=== PATIENT | female | born 1930 | race Asian ===

== ENCOUNTER 2019-06-23 16:26 | Inpatient (IN) | payer OTHER ==
[~2019-06-23] VITALS: Ht 170.2 cm; Wt 72.6 kg
[~2019-06-23 16:26] MED LIST: AMLO10TA PO; BENZ-196 PO; BISA10SU1 RC; CELE200C PO; CLOP75TA PO; DETLA4 PO; DOCU-2 PO; ESK300 PO; FAMO-90 PO; FENO145T PO; GABA300C PO; IBUP200C97 PO; MAGN400S60 PO; NITR0.4S14 SL; OLAN5TAB29 PO; OLOP2.5S OP
--- NOTE | 2019-06-23 16:26 | NUR ---
ANTHONY COATES ALS TO ER BED 03
[2019-06-23 16:41] VITALS: BP 138/61
--- NOTE | 2019-06-23 16:47 | NUR ---
BIBA FROM [facility] C/O ABDOMINAL PAIN& DISTENDED,N/V/D X 3 DAYS.PMH:GERD, OVER ACTIVE BLADDER,CAD,ARTHRITIS.PATIENT STATES PAIN OF 7/10 AT THIS TIME. PATIENT POSITIONED FOR COMFORT; HOB ELEVATED; BEDRAILS UP X2; BED DOWN. ER MD MADE AWARE OF PT STATUS.
[2019-06-23] MEDS ORDERED: LEVOFLOXACIN 500 MG/D5W PREMIX 100 ML IV ONE (17:15)
[2019-06-23] MEDS ORDERED: NACL 0.9% 1,000 ML IV ONE (17:15)
[2019-06-23 17:26] LABS: BASOPHILS % (AUTO) 0.4 % (0.0-2.0); EOSINOPHILS # (AUTO) 0.3 K/uL (0-0.4); EOSINOPHILS % (AUTO) 4.8 % (0.0-4.0); HEMATOCRIT 35.6 % (36-48); HEMOGLOBIN 11.3 g/dL (12.0-16.0); LYMPHOCYTES # (AUTO) 1.8 K/uL (2.5-16.5); LYMPHOCYTES % (AUTO) 25.2 % (20.5-51.1); MEAN CORPUSCULAR HEMOGLOBIN 28 pg (27-31); MEAN CORPUSCULAR HGB CONC 32 g/dL (33-37); MEAN CORPUSCULAR VOLUME 88.8 fL (80-94); MONOCYTES # (AUTO) 0.4 K/uL (0.8-1.0); MONOCYTES % (AUTO) 5.2 % (1.7-9.3); NEUTROPHILS # (AUTO) 4.6 K/uL (1.8-7.7); NEUTROPHILS % (AUTO) 64.4 % (42.2-75.2); PLATELET COUNT (AUTO) 310 K/uL (140-450); RED CELL DISTRIBUTION WIDTH 14.2 % (11.6-13.7); WHITE BLOOD COUNT (AUTO) 7.1 K/uL (4.8-10.8)
[2019-06-23 17:51] LABS: APPEARANCE,URINE SL CLOUDY (CLEAR); BILIRUBIN,URINE NEGATIVE (NEGATIVE); BLOOD, URINE 1+ (NEGATIVE); COLOR,URINE YELLOW (YELLOW); LEUKOCYTE ESTERASE ,URINE 2+ (NEGATIVE); NITRITE, URINE POSITIVE (NEGATIVE); UGLUCOSE NEGATIVE (NEGATIVE)
[2019-06-23 18:01] LABS: RBC,URINE 20-50 /HPF (0-5); WBC,URINE 80-100 /HPF (0-5)
--- NOTE | 2019-06-23 19:11 | NUR ---
SON :ERNA [facility] [phone] : ZAY [facility] [phone]
--- NOTE | 2019-06-23 19:13 | NUR ---
Pt report given to DANIELLE GU. Transfer of care at this time.
[2019-06-23 19:18] LABS: ALBUMIN 3.4 g/dL (3.4-5.0); AMYLASE 80 U/L (25-115); ANION GAP 13.6 (8-16); ASPARTATE AMINOTRANSFERASE 25 U/L (15-37); CARBON DIOXIDE 24.3 mmol/L (21-32); CHLORIDE 108 mmol/L (98-107); CREATININE 1.4 mg/dL (0.6-1.3); GLUCOSE 116 mg/dL (74-106); LIPASE 163 U/L (73-393); POTASSIUM 3.9 mmol/L (3.5-5.1); SODIUM SERUM 142 mmol/L (136-145); TOTAL BILIRUBIN 0.3 mg/dL (0.0-1.0); UREA NITROGEN, BLOOD 22 mg/dL (7-18)
[2019-06-23] MEDS ORDERED: FLUO10CA21 PO (20:54)
[2019-06-23] MEDS ORDERED: NACL 0.9% 1,000 ML IV SCH (21:17)
[2019-06-23] MEDS ORDERED: MORPHINE SULFATE 2 MG/ML SYR IVP PRN (21:20)
[2019-06-23] MEDS ORDERED: DOCUSATE SODIUM 100 MG GELCAP PO PRN (21:20)
[2019-06-23] MEDS ORDERED: HYDROcodone/APAP 5/325 MG 1 TAB TAB PO PRN (21:20)
[2019-06-23] MEDS ORDERED: ACETAMINOPHEN 325 MG TAB PO PRN (21:20)
[2019-06-23] MEDS ORDERED: ONDANSETRON 4 MG/2 ML VIAL IM/IVP PRN (21:20)
[2019-06-23] MEDS ORDERED: ZOLPIDEM 5 MG TAB PO PRN (21:20)
[2019-06-23] MEDS ORDERED: LORazepam 2 MG/ML VIAL IM/IVP PRN (21:20)
[2019-06-23 22:13] LABS: PROTHROMBIN TIME 10.5 secs (10.8-13.4)
[2019-06-23 22:15] VITALS: BP 105/54
--- NOTE | 2019-06-23 22:15 | NUR ---
RECEIVED PT FROM ER VIA [facility], PT IS AAOX2 SPEAKS TURKMEN AND PERSIAN HL ON RT AC GAUGE 20 SKIN IS INTACT, MRSA NARES SWAB PROTOCOL AND SENT TO LAB PT IS ORIENTED TOTHE FLOOR CALL LIGHT WITHIN REACH.
--- NOTE | 2019-06-23 22:15 | NUR ---
PT ADMITTED TO [facility] RM 123B. TRANSFERRED PT VIA [facility] WITH [facility]ER[place]NDO EMT. PT STABLE CONDITION. REPORT GIVEN TO STEVEN GU. TRANSFER OF CARE AT THIS TIME.
[2019-06-23 22:32] LABS: BARBITURATE, URINE NEG. ng/ml (NEG <=200); BENZODIAZEPINE, URINE NEG. ng/mL (NEG <=200); CANNABINOID, URINE NEG. ng/mL (NEG <=50); COCAINE, URINE NEG. ng/mL (NEG <=300); OPIATE, URINE NEG. ng/mL (NEG <=2000); PHENCYCLIDINE SCREEN,URINE NEG. ng/mL (NEG <=25)
[2019-06-23 22:40] LABS: CHOL/HDL RATIO 4.2 (1-4.5); PHOSPHORUS 2.1 mg/dL (2.5-4.9); THYROID STIMULATING HORMONE 1.24 uIU/mL (0.34-3.74)
--- NOTE | 2019-06-23 23:00 | NUR ---
PT IS TRANSFER TO ROOM 113 FOR HX OF DIARRHEA N/V , AND ABD PAIN
[2019-06-24] VITALS: BP 100/54
--- NOTE | 2019-06-24 02:47 | NUR ---
PT ON CLOSE MONITORING NOT VOMITING, NOT NAUSEAS NOT DIARRHEA AT THIS TIME SINCE ADMISSION, REPOSITIONED Q2H
[2019-06-24] MEDS ORDERED: MAGNESIUM HYDROXIDE 2400 MG/30 ML UDC PO PRN (03:15)
[2019-06-24] MEDS ORDERED: DEXTROSE 50% 50 ML SYR IVP PRN (03:15)
[2019-06-24] MEDS ORDERED: INSULIN LISPRO SLIDING SCALE 100 UNITS/ML VIAL SUBQ PRN (03:15)
[2019-06-24 04:00] VITALS: BP 152/72
[2019-06-24] MEDS ORDERED: SODIUM PHOS / POTASSIUM PHOS 1 PKT PDR PO SCH ×2 (04:00→12:00)
--- NOTE | 2019-06-24 05:00 | NUR ---
SPONGE BTH GIVEN LINEN CHANGED PT REMAIN STABLE NOT ABD PAIN NOT DIARRHEA PT REMAIN STABLE ATTHIS TIME ON TELEMTRY SB
[2019-06-24] MEDS: metroNIDAZOLE 500 MG/NS PREMIX 100 ML IV SCH ×3 (05:18→22:36)
[2019-06-24] MEDS: BLOOD GLUCOSE MONITORING 1 DEV DEV FS SCH ×4 (06:35→21:08)
--- NOTE | 2019-06-24 06:37 | NUR ---
BLOOD SUGAR TEST 103 PT DENIES ANY NAUSEAS O VOMITING, NOT BM NOTED
--- NOTE | 2019-06-24 06:38 | NUR ---
PT WILL BE ENDORSED [facility] FOR CONTINUE OF CARE
[2019-06-24] MEDS ORDERED: FAMOTIDINE 20 MG TAB PO SCH (07:30)
[2019-06-24] MEDS ORDERED: MEDICATION REC. PHARMACY CONS. 1 EA MISC MC PRN (07:40)
[2019-06-24 08:00] VITALS: BP 143/50
[2019-06-24] MEDS ORDERED: FERROUS SULFATE 325 MG TABEC PO SCH (08:00)
[2019-06-24] MEDS: LEVOFLOXACIN 250 MG/D5 PREMIX 50 ML IV SCH (08:56)
[2019-06-24] MEDS: amLODIPine 5 MG TAB PO SCH (09:00)
[2019-06-24] MEDS ORDERED: DOCUSATE SODIUM 100 MG GELCAP PO SCH (09:00)
[2019-06-24] MEDS: FLUoxetine 10 MG CAP PO SCH (09:00)
[2019-06-24] MEDS: LACTOBACILLUS RHAMNOSUS GG 1 EACH CAP PO SCH (09:00)
[2019-06-24] MEDS: CLOPIDOGREL 75 MG TAB PO SCH (09:01)
[2019-06-24] MEDS: FERROUS SULFATE 325 MG TABEC PO SCH (09:02)
[2019-06-24] MEDS: GABAPENTIN 100 MG CAP PO SCH (09:02)
[2019-06-24] MEDS: ASCORBIC ACID 500 MG TAB PO SCH (09:13)
--- NOTE | 2019-06-24 09:13 | NUR ---
ADMINISTERED MEDICATION PRESCRIBED PER MD ORDER. PT TOLERATED WELL. NO COMPLAINTS OR CONCERNS AT THIS TIME. MEDICATION EDUCATION PERFORMED. PT TOLERATED WELL. RESPIRATIONS EVEN AND UNLABORED. ABLE TO VERBALIZED UNDERSTANDING. SAFETY MEASURES IN PLACE. WILL CONTINUE TO MONITOR.
--- NOTE | 2019-06-24 09:16 | NUR ---
PATIENT HAS BEEN SCREENED AND CATEGORIZED HIGH NUTRITION RISK. PATIENT WILL BE SEEN WITHIN 1-2 DAYS OF ADMISSION. 06/23/19-06/25/[address]
[2019-06-24] MEDS ORDERED: FAMOTIDINE 20 MG TAB ONE (09:27)
[2019-06-24 09:32] LABS: BASOPHILS % (AUTO) 0.4 % (0.0-2.0); EOSINOPHILS # (AUTO) 0.3 K/uL (0-0.4); EOSINOPHILS % (AUTO) 4.3 % (0.0-4.0); HEMATOCRIT 39.1 % (36-48); HEMOGLOBIN 12.2 g/dL (12.0-16.0); LYMPHOCYTES # (AUTO) 1.1 K/uL (2.5-16.5); LYMPHOCYTES % (AUTO) 15.7 % (20.5-51.1); MEAN CORPUSCULAR HEMOGLOBIN 28 pg (27-31); MEAN CORPUSCULAR HGB CONC 31 g/dL (33-37); MEAN CORPUSCULAR VOLUME 89.1 fL (80-94); MONOCYTES # (AUTO) 0.3 K/uL (0.8-1.0); MONOCYTES % (AUTO) 4.3 % (1.7-9.3); NEUTROPHILS # (AUTO) 5.1 K/uL (1.8-7.7); NEUTROPHILS % (AUTO) 75.3 % (42.2-75.2); PLATELET COUNT (AUTO) 333 K/uL (140-450); RED BLOOD CELL COUNT(AUTO) 4.38 MIL/uL (4.20-5.40); RED CELL DISTRIBUTION WIDTH 14.6 % (11.6-13.7); WHITE BLOOD COUNT (AUTO) 6.7 K/uL (4.8-10.8)
[2019-06-24 09:41] LABS: CARBON DIOXIDE 24.6 mmol/L (21-32); CHLORIDE 112 mmol/L (98-107); GLUCOSE 109 mg/dL (74-106); POTASSIUM 4.6 mmol/L (3.5-5.1); SODIUM SERUM 147 mmol/L (136-145); UREA NITROGEN, BLOOD 15 mg/dL (7-18)
--- NOTE | 2019-06-24 10:22 | NUR ---
PT RESTING IN BED WITH FAMILY AT BEDSIDE. ABLE TO MAKE NEEDS KNOWN. NO COMPLAINTS OR CONCERNS AT THIS TIME. RESPIRATIONS EVEN AND UNLABORED WITH NO SOB OR RESPIRATORY DISTRESS. SKIN WARM AND DRY TO TOUCH. SAFETY MEASURES IN PLACE. WILL CONTINUE TO MONITOR.
--- NOTE | 2019-06-24 10:51 | NUR ---
Senior Reservoir Engineer Note: Basic Screen: Yes High Risk DC Screen Yes Name: LETA Watson Relationship: SON Pre-Admission Living Arrangements: SNF Healthcare Decision Maker: Next of Kin Advance Directive No Discipline: Case Mgt/Social Svcs Tentative Discharge Plan/Destination: SNF/ECF Will require assistance post discharge: No Referred to Overhead Cleaner: No Tentative Discharge Plan Summary: Patient is a 89-year-old female admitted for abdominal pain and diarrhea. Patient has PMHX of hypertension, diabetes mellitis, bipolar disorder, and CAD. Patient was admitted from [facility]. SW contacted Munir from admissions [phone]. Per Munir, patient is a long-term patient and is currently on a bed hold. Toney[place]toriya stated that patient has no advanced directive on file and patient's healthcare decision maker is Leta Robin [phone]. Patient's tentative discharge plan is to return to [facility]. No further needs identified. Signature: GRISEL El Date: Jun 24, 2019 Time: 10:49
--- NOTE | 2019-06-24 11:07 | NUR ---
DC PLANNING 89 YRS OLD FEMALE PT WAS ADMITTED FROM [facility] WITH A DX OF INFECTIOUS GASTROENTERITIS. PT HAS A HX OF HTN, DM, CAD, BIPOLAR . PT HAS DIAHRREA AND ABDOMINAL PAIN . CT ABD/PELVES SHOWS CHRONIC DIVERTICULOSIS , STOOL CULTURE AND C-DIFF SENT TO LAB ADMINISTERED IVF, LEVAQUIN AND FLAGYL AND PAIN CONTROL. DC PLAN TO GO BACK TO [facility] . CM TO FOLLOW Addendum: 06/25/19 at 1504 by Abby Santiago CM DC PLANNING NO REPORT OF DIARRHEA PER RN AND PATIENT CONTINUE IV ABX LEVAQUIN, FLAGYL AND CULTURELLE . DC PLAN TO GO BACK TO [facility] TOMORROW. CM TO FOLLOW Addendum: 06/26/19 at 1305 by Abby Santiago CM DC PLANNING FAXED THE DC ORDER AND ALL PAPER WORK TO [facility]. CALLED [facility] SPOKE WITH JOSEE , NOTIFIED PT NEEDS AUTH FOR TRANSPORT JOSEE PROVIDED AUTH # [id number] WAITING FOR BED NUMBER FROM [facility] CM TO FOLLOW Addendum: 06/26/19 at 1452 by Abby Santiago CM DC PLANNING PT HAS A DC ORDER TO GO BACK TO [facility] CAN GO TO ROOM 42 C # ACCEPTING DR CASEY . TO GIVE REPORT [phone] ARRANGED TRANSPORT WITH [facility] [phone] SENIOR CREDIT ANALYST TIME 17OO AUTH # FOR TRANSPORT FROM [facility] [id number] NOTIFIED GUS GU
--- NOTE | 2019-06-24 11:37 | NUR ---
PT RESTING ON THE SIDE OF THE BED WITH FAMILY AT BEDSIDE. ABLE TO MAKE NEEDS KNOWN. NO COMPLAINTS OR CONCERNS AT THIS TIME. RESPIRATIONS EVEN AND UNLABORED WITH NO SOB OR RESPIRATORY DISTRESS. SKIN WARM AND DRY TO TOUCH. SAFETY MEASURES IN PLACE. WILL CONTINUE TO MONITOR.
[2019-06-24 12:00] VITALS: BP 144/58
--- NOTE | 2019-06-24 12:28 | NUR ---
HOURLY ROUNDING. PT RESTING IN BED WITH FAMILY. ABLE TO MAKE NEEDS KNOWN. NO COMPLAINTS OR CONCERNS AT THIS TIME. RESPIRATIONS EVEN AND UNLABORED WITH NO SOB OR RESPIRATORY DISTRESS. SKIN WARM AND DRY TO TOUCH. SAFETY MEASURES IN PLACE. WILL CONTINUE TO MONITOR.
--- NOTE | 2019-06-24 13:17 | NUR ---
PT RESTING IN BED WITH FAMILY AT BEDSIDE. RESPIRATIONS EVEN AND UNLABORED WITH NO SOB OR RESPIRATORY DISTRESS. SKIN WARM AND DRY TO TOUCH. NO COMPLAINTS OR CONCERNS AT THIS TIME. SAFETY MEASURES IN PLACE. WILL CONTINUE TO MONITOR
--- NOTE | 2019-06-24 14:03 | NUR ---
PT RESTING ON THE CHAIR WITH FAMILY AT BEDSIDE.ABLE TO MAKE NEEDS KNOWN. NO COMPLAINTS OR CONCERNS AT THIS TIME. RESPIRATIONS EVEN AND UNLABORED WITH NO SOB OR RESPIRATORY DISTRESS. SKIN WARM AND DRY TO TOUCH. SAFETY MEASURES IN PLACE. WILL CONTINUE TO MONITOR.
[2019-06-24] MEDS: NACL 0.45% 1,000 ML IV SCH (14:14)
--- NOTE | 2019-06-24 14:40 | NUR ---
*S.T. BEDSIDE SWALLOW EVAL COMPLETED* See report for details. Pt presents w/ adequate oropharyngeal swallow function w/o overt s/s aspiration across all textures given. Pt able to self-feed w/o difficulty. Recommend: 1) Continue regular texture diet, thin liquids. 2) P.O. meds okay whole, one at a time. No further tx indicated at this time. DC to [facility] care. Endorsed to BRITTANIE Flores. Time [id number]
--- NOTE | 2019-06-24 14:42 | NUR ---
HOURLY ROUNDING. PT RESTING IN BED. RESPIRATIONS EVEN AND UNLABORED WITH NO SOB OR RESPIRATORY DISTRESS. SKIN WARM AND DRY TO TOUCH. NO COMPLAINTS OR CONCERNS AT THIS TIME. SAFETY MEASURES IN PLACE. WILL CONTINUE TO MONITOR
--- NOTE | 2019-06-24 15:47 | NUR ---
PT ASLEEP IN BED. RESPONSIVE TO VERBAL AND TACTILE STIMULI. RESPIRATIONS EVEN AND UNLABORED WITH NO SOB OR RESPIRATORY DISTRESS. SKIN WARM AND DRY TO TOUCH. NO COMPLAINTS OR CONCERNS AT THIS TIME. SAFETY MEASURES IN PLACE. WILL CONTINUE TO MONITOR
[2019-06-24 16:00] VITALS: BP 137/57
--- NOTE | 2019-06-24 16:06 | NUR ---
06/24/19 RD INITIAL ASSESSMENT COMPLETED PLEASE REFER TO NUTRITION ASSESSMENT UNDER CARE ACTIVITY FOR ESTIMATED NUTRITIONAL NEEDS. 1. CONTINUE CCHO 60 DIET TOLERATED 2. RECOMMEND GLUCERNA BID 3. RD TO FOLLOW-UP 2-3 DAYS, HIGH RISK NONA GARCIA, RD
--- NOTE | 2019-06-24 19:20 | NUR ---
ENDORSED TO NIGHTSHIFT NURSE. PT RESTING WITH FAMILY AT BEDSIDE. RESPIRATIONS EVEN AND UNLABORED WITH NO SOB OR RESPIRATORY DISTRESS. SKIN WARM AND DRY TO TOUCH. PATIENT IS STABLE.
--- NOTE | 2019-06-24 19:21 | NUR ---
RECD. RESTING IN BED, AWAKE, A/OX4, RESPIRATION EVEN AND UNLABORED. IV OF NS INFUSING AT 60 ML/HR. RIGHT FOREARM G20. F/C PATENT DRAINING CLEAR YELLOW URINE. DENIES DIARRHEA, STATED LAST BM IS YESTERDAY. SAFETY MEASURES ENFORCED. BED ON LOWEST POSITION, SIDE RAILS UP, BED ON ALARM. PATIENT GIVEN CALL LIGHT, INSTRUCTED TO CALL NURSE WHENEVER GETTING OUT OF BED, PLAN OF CARE FOR THE SHIFT DISCUSSED WITH PATIENT AND SON. VERBALIZED UNDERSTANDING. DENIES PAIN 0/10.
--- NOTE | 2019-06-24 19:30 | NUR ---
Patient's Plan of Care was discussed and reviewed with MEDICAL TRANSCRIPTION EDITOR: MARYELLEN
[2019-06-24 20:00] VITALS: BP 164/59
--- NOTE | 2019-06-24 20:00 | NUR ---
DR. RIVAS SPOKE WITH PATIENT AND FAMILY AND ANSWERS ALL QUESTIONS. STILL WAITING FOR RESULTS OF STOOL CULTURE AND OTHER TEST BEFORE PATIENT CAN BE DISCHARGE.
[2019-06-24] MEDS: OLANZapine 5 MG TAB PO SCH (20:51)
[2019-06-24] MEDS: LITHIUM CARBONATE 300 MG TAB PO SCH (20:52)
--- NOTE | 2019-06-24 21:10 | NUR ---
DUE PO MEDICATIONS GIVEN. SNACK GIVEN FOR THE NIGHT.
--- NOTE | 2019-06-24 21:30 | NUR ---
INSTRUCTED PATIENT TO CALL NURSE IF HAVING BM FOR COLLECTION OF STOOL FOR TEST TO BE SENT TO LAB. PLACED RECEPTACLE IN THE TOILET. VERBALIZED UNDERSTANDING.
[2019-06-25] VITALS: BP 117/55
--- NOTE | 2019-06-25 | NUR ---
SLEEPING COMFORTABLY IN BED.
[2019-06-25] MEDS: NACL 0.45% 1,000 ML IV SCH ×2 (03:50→18:11)
[2019-06-25 04:00] VITALS: BP 155/69
[2019-06-25 06:12] LABS: FOLIC ACID 8.5 ng/mL (>3.0)
[2019-06-25] MEDS: metroNIDAZOLE 500 MG/NS PREMIX 100 ML IV SCH ×3 (06:38→21:11)
--- NOTE | 2019-06-25 07:07 | NUR ---
AWAKE, IN BED. NO DIARRHEA NOTED DURING SHIFT. STILL WAITING TO HAVE BM FOR STOOL TEST. CONDITION REMAIN STABLE. ENDORSED TO AM NURSE FOR CONTINUITY OF CARE.
--- NOTE | 2019-06-25 07:07 | NUR ---
RECEIVED REPORT FROM WAREHOUSE OPERATOR NURSE, PATIENT IN STABLE CONDITION, WILL CONTINUE TO MONITOR.
[2019-06-25] MEDS: BLOOD GLUCOSE MONITORING 1 DEV DEV FS SCH ×4 (07:18→20:03)
[2019-06-25 08:00] VITALS: BP 161/74
[2019-06-25 08:16] LABS: BASOPHILS % (AUTO) 0.5 % (0.0-2.0); EOSINOPHILS # (AUTO) 0.2 K/uL (0-0.4); EOSINOPHILS % (AUTO) 3.4 % (0.0-4.0); HEMATOCRIT 38.7 % (36-48); HEMOGLOBIN 12.3 g/dL (12.0-16.0); LYMPHOCYTES # (AUTO) 1.4 K/uL (2.5-16.5); LYMPHOCYTES % (AUTO) 25.6 % (20.5-51.1); MEAN CORPUSCULAR HEMOGLOBIN 28 pg (27-31); MEAN CORPUSCULAR HGB CONC 32 g/dL (33-37); MEAN CORPUSCULAR VOLUME 88.3 fL (80-94); MONOCYTES # (AUTO) 0.2 K/uL (0.8-1.0); MONOCYTES % (AUTO) 4.4 % (1.7-9.3); NEUTROPHILS # (AUTO) 3.6 K/uL (1.8-7.7); NEUTROPHILS % (AUTO) 66.1 % (42.2-75.2); PLATELET COUNT (AUTO) 334 K/uL (140-450); RED BLOOD CELL COUNT(AUTO) 4.38 MIL/uL (4.20-5.40); RED CELL DISTRIBUTION WIDTH 14.6 % (11.6-13.7); WHITE BLOOD COUNT (AUTO) 5.5 K/uL (4.8-10.8)
--- NOTE | 2019-06-25 08:30 | NUR ---
RECEIVED REPORT FROM BRITTANIE EL. PATIENT IS LAYING IN BED, VISIBLE CHEST RISE AND FALL, Addendum: 06/25/19 at 1126 by Velia Cormier RN (CONTINUED NOTE): NO SIGNS OF RESPIRATORY DISTRESS NOTED. PATIENT IS CECILIO SPEAKING ONLY. CAME FROM [facility]. F/C PRESENT. PATIENT IS ON ROOM AIR. IV TO RIGHT AC 20G. WILL REVIEW AND CONTINUE WITH PLAN OF CARE.
[2019-06-25 09:09] LABS: MAGNESIUM 1.8 mg/dL (1.8-2.4)
[2019-06-25 09:10] LABS: ANION GAP 15.1 (8-16); CHLORIDE 113 mmol/L (98-107); GLUCOSE 115 mg/dL (74-106); PHOSPHORUS 2.1 mg/dL (2.5-4.9); POTASSIUM 4.1 mmol/L (3.5-5.1); SODIUM SERUM 146 mmol/L (136-145)
[2019-06-25 09:12] LABS: UREA NITROGEN, BLOOD 11 mg/dL (7-18)
--- NOTE | 2019-06-25 09:30 | NUR ---
ADMINISTERED MORNING MEDICATION. PATIENT TOLERATED PO WELL. NO COMPLAINTS
[2019-06-25] MEDS: FLUoxetine 10 MG CAP PO SCH (09:47)
[2019-06-25] MEDS: FERROUS SULFATE 325 MG TABEC PO SCH (09:49)
[2019-06-25] MEDS: PANTOPRAZOLE 40 MG TABEC PO SCH (09:49)
[2019-06-25] MEDS: TOLTERODINE LA 4 MG CAPER PO SCH (09:49)
[2019-06-25] MEDS: amLODIPine 5 MG TAB PO SCH (09:49)
[2019-06-25] MEDS: GABAPENTIN 100 MG CAP PO SCH (09:50)
[2019-06-25] MEDS: CLOPIDOGREL 75 MG TAB PO SCH (09:50)
[2019-06-25] MEDS: LACTOBACILLUS RHAMNOSUS GG 1 EACH CAP PO SCH (09:50)
[2019-06-25] MEDS: ASCORBIC ACID 500 MG TAB PO SCH (09:50)
[2019-06-25] MEDS: LEVOFLOXACIN 250 MG/D5 PREMIX 50 ML IV SCH (09:53)
[2019-06-25] MEDS ORDERED: hydrALAZINE 20 MG/ML VIAL IVP PRN (11:15)
[2019-06-25] MEDS ORDERED: MECLIZINE 25 MG TAB PO SCH (11:19)
[2019-06-25] MEDS ORDERED: MECLIZINE 25 MG TAB PO PRN (11:20)
--- NOTE | 2019-06-25 11:27 | NUR ---
PATIENT IS SLEEPING. VISIBLE CHEST RISE AND FALL. WILL CONTINUE TO MONITOR
[2019-06-25] MEDS ORDERED: POTASSIUM PHOSPHATE 15 MM in NACL 0.9% 250 ML IV SCH (12:00)
--- NOTE | 2019-06-25 12:00 | NUR ---
BLOOD SUGAR OF 89. NO ACTION NEEDED
--- NOTE | 2019-06-25 14:15 | NUR ---
PATIENT RESTING QUIETLY IN BED. AWAKE, ALERT. NO SIGNS OF DISTRESS. NO COMPLAINTS AT THIS TIME
[2019-06-25 16:00] VITALS: BP 155/70
--- NOTE | 2019-06-25 16:20 | NUR ---
BLOOD SUGAR OF 83, NO ACTION NEEDED.
--- NOTE | 2019-06-25 18:43 | NUR ---
FREQUENT ROUNDING DONE ON PATIENT. PATIENT IS IN STABLE CONDITION. NO COMPLAINTS, ALL NEEDS HAVE BEEN MET. WILL ENDORSE TO GAS AND OIL CHECKER FOR CONTINUITY OF CARE.
--- NOTE | 2019-06-25 19:30 | NUR ---
RECEIVED BEDSIDE REPORT FROM DAY RN. PT IS AWAKE AND ALERT SPEAKS VERY LITTLE TANZANIAN SPEAKS MAINLY CECILIO. SKIN IS INTACT. RAE CATH IN PLACE DRAINING CLEAR YELLOW URINE. IV ON RAC 20G IVF PER ORDERS. C/C DIARRHEA HAS NOT HAD BM SINCE ADMISSION. POC DISCUSSED WITH PT. FALL PRECAUTIONS ARE IN PLACE. CALL LIGHT IS WITHIN REACH. WILL CONTINUE TO MONITOR.
[2019-06-25] MEDS: LITHIUM CARBONATE 300 MG TAB PO SCH (20:45)
[2019-06-25] MEDS: OLANZapine 5 MG TAB PO SCH (20:45)
--- NOTE | 2019-06-25 20:47 | NUR ---
BLOOD SUGAR 125 NO COVERAGE NEEDED. ROXANNA MEDICATIONS GIVEN. PT TOLERATED WELL. POC DISCUSSED WITH PT AND SON AND FAMILY. ALL QUESTIONS AND CONCERNS ADDRESSED. CALL LIGHT IS WITHIN REACH. WILL CONTINUE TO MONITOR.
--- NOTE | 2019-06-25 23:15 | NUR ---
ADMINISTERED PRN AMBIEN FOR INSOMNIA. PT TOLERATED WELL. VITAL SIGNS ARE WITHIN NORMAL LIMITS. ALL NEEDS MET AT THIS TIME. CALL LIGHT IS WITHIN REACH.
[2019-06-25] MEDS ORDERED: ZOLPIDEM 5 MG TAB PO SCH (23:30)
[2019-06-26] VITALS: BP 149/60
--- NOTE | 2019-06-26 00:47 | NUR ---
PATIENT IS SLEEPING COMFORTABLY IN BED. CHEST RISE AND FALL. NO S/S OF DISTRESS. WILL CONTINUE TO MONITOR.
--- NOTE | 2019-06-26 03:01 | NUR ---
PATIENT IS SLEEPING COMFORTABLY IN BED. CHEST RISE AND FALL. ALL SAFETY MEASURES ARE IN PLACE. CALL LIGHT IS WITHIN REACH. CALL LIGHT IS WITHIN REACH.
[2019-06-26] MEDS: NACL 0.45% 1,000 ML IV SCH (03:29)
[2019-06-26] MEDS: metroNIDAZOLE 500 MG/NS PREMIX 100 ML IV SCH ×2 (04:14→13:32)
--- NOTE | 2019-06-26 04:14 | NUR ---
FLAGYL NOW INFUSING PER ORDERS. PT IS ASLEEP. CHEST RISE AND FALL. ALL SAFETY MEASURES ARE IN PLACE. CALL LIGHT IS WITHIN REACH. WILL CONTINUE TO MONITOR.
[2019-06-26] MEDS: BLOOD GLUCOSE MONITORING 1 DEV DEV FS SCH ×2 (05:58→11:50)
--- NOTE | 2019-06-26 06:03 | NUR ---
BLOOD SUGAR 91 NO COVERAGE NEEDED. PT IS SLEEPING COMFORTABLY IN BED. CHEST RISE AND FALL. SAFETY MEASURES ARE IN PLACE. CALL LIGHT IS WITHIN REACH.
--- NOTE | 2019-06-26 07:00 | NUR ---
RECEIVED REPORT FROM NIGHT NURSE. PATIENT IS SLEEPING, EASILY AROUSABLE, VISIBLE CHEST RISE AND FALL. PATIENT IS CECILIO SPEAKING ONLY. AAOX4. ON ROOM AIR. IV TO RIGHT AC 20G. PATIENT HAS A F/C IN PLACE. WILL REVIEW AND CONTINUE [facility] PLAN OF CARE FOR THE DAY.
--- NOTE | 2019-06-26 07:05 | NUR ---
GAVE BEDSIDE REPORT TO DAY RN. PT ENDORSED IN STABLE CONDITION.
[2019-06-26 07:06] LABS: BASOPHILS % (AUTO) 0.6 % (0.0-2.0); EOSINOPHILS # (AUTO) 0.3 K/uL (0-0.4); EOSINOPHILS % (AUTO) 4.9 % (0.0-4.0); HEMATOCRIT 38.5 % (36-48); HEMOGLOBIN 12.4 g/dL (12.0-16.0); LYMPHOCYTES # (AUTO) 1.8 K/uL (2.5-16.5); LYMPHOCYTES % (AUTO) 27.6 % (20.5-51.1); MEAN CORPUSCULAR HEMOGLOBIN 28 pg (27-31); MEAN CORPUSCULAR HGB CONC 32 g/dL (33-37); MEAN CORPUSCULAR VOLUME 88.2 fL (80-94); MONOCYTES # (AUTO) 0.5 K/uL (0.8-1.0); MONOCYTES % (AUTO) 7.4 % (1.7-9.3); NEUTROPHILS # (AUTO) 3.8 K/uL (1.8-7.7); NEUTROPHILS % (AUTO) 59.5 % (42.2-75.2); PLATELET COUNT (AUTO) 319 K/uL (140-450); RED BLOOD CELL COUNT(AUTO) 4.37 MIL/uL (4.20-5.40); RED CELL DISTRIBUTION WIDTH 14.7 % (11.6-13.7); WHITE BLOOD COUNT (AUTO) 6.4 K/uL (4.8-10.8)
[2019-06-26 07:09] LABS: ANION GAP 13.7 (8-16); CARBON DIOXIDE 23.7 mmol/L (21-32); CHLORIDE 112 mmol/L (98-107); GLUCOSE 108 mg/dL (74-106); POTASSIUM 4.4 mmol/L (3.5-5.1); SODIUM SERUM 145 mmol/L (136-145); UREA NITROGEN, BLOOD 12 mg/dL (7-18)
[2019-06-26 07:16] LABS: MAGNESIUM 1.8 mg/dL (1.8-2.4); PHOSPHORUS 2.8 mg/dL (2.5-4.9)
[2019-06-26 08:00] VITALS: BP 167/70
[2019-06-26] MEDS: LACTOBACILLUS RHAMNOSUS GG 1 EACH CAP PO SCH (08:53)
[2019-06-26] MEDS: GABAPENTIN 100 MG CAP PO SCH (08:54)
[2019-06-26] MEDS: PANTOPRAZOLE 40 MG TABEC PO SCH (08:54)
[2019-06-26] MEDS: ASCORBIC ACID 500 MG TAB PO SCH (08:55)
[2019-06-26] MEDS: TOLTERODINE LA 4 MG CAPER PO SCH (08:55)
[2019-06-26] MEDS: FLUoxetine 10 MG CAP PO SCH (08:55)
[2019-06-26] MEDS ORDERED: amLODIPine 5 MG TAB ONE (08:59)
[2019-06-26] MEDS: amLODIPine 5 MG TAB PO SCH (09:00)
[2019-06-26] MEDS: FERROUS SULFATE 325 MG TABEC PO SCH (09:00)
[2019-06-26] MEDS: CLOPIDOGREL 75 MG TAB PO SCH (09:00)
--- NOTE | 2019-06-26 09:00 | NUR ---
ADMINISTERED MORNING MEDICATION. PATIENT TOLERATED WELL. RESTING IN BED, NO COMPLAINTS AT THIS TIME.
[2019-06-26] MEDS: LEVOFLOXACIN 250 MG/D5 PREMIX 50 ML IV SCH (09:01)
[2019-06-26] MEDS ORDERED: DOCU-2 PO (11:39)
--- NOTE | 2019-06-26 11:49 | NUR ---
BLOOD SUGAR OF 83. NO ACTION NEEDED
--- NOTE | 2019-06-26 13:33 | NUR ---
BEGAN INFUSION OF FLAGYL IVPB. PATIENT IS SLEEPING BUT EASILY AROUSABLE
[2019-06-26] MEDS ORDERED: DEXT50SO52 IV (14:36)
--- NOTE | 2019-06-26 14:46 | NUR ---
06/26/19 RD FOLLOW UP COMPLETED PLEASE REFER TO NUTRITION ASSESSMENT UNDER CARE ACTIVITY FOR ESTIMATED NUTRITIONAL NEEDS. 1. CONTINUE CCHO 60 KOSHER DIET TOLERATED 2. RECOMMEND GLUCERNA BID 3. ENCOURAGED INCREASING PO INTAKE 4. FOLLOW DIETARY RESTRICTION OF NO PORK 5. RD TO FOLLOW-UP 3-5 DAYS, MODERATE RISK CHRISTOPHER HYDE, RD
--- NOTE | 2019-06-26 14:52 | NUR ---
WAS INFORMED OF PATIENTS PICKUP TIME OF 1700 FOR TRANSPORT[place] [facility] WILL CALL FOR REPORT AND FINISH PAPERWORK.
--- NOTE | 2019-06-26 16:09 | NUR ---
SPOKE TO [place] AT [facility] AND GAVE REPORT ON PATIENT. PATIENT WILL BE DISCHARGED WITH IV LINE FOR CONTINUED IV ABX
--- NOTE | 2019-06-26 16:19 | NUR ---
REMOVED PATIENTS F/C, LINE INTACT.
--- NOTE | 2019-06-26 17:05 | NUR ---
PATIENT HAS BEEN DISCHARGED BACK TO [facility]. ALL BELONGINGS SENT WITH PATIENT.
== END 2019-06-26 17:05 | DRG 391 ==
LOC: MED 16:26 → MTU 21:17
PROVIDERS: ADMIT General Practice; ATTEND General Practice
DX: A08.4 Viral intestinal infection, unspecified (principal); N17.0 Acute kidney failure with tubular necrosis; E87.0 Hyperosmolality and hypernatremia; N12 Tubulo-interstitial nephritis, not specified as acute or chronic; K21.9 Gastro-esophageal reflux disease without esophagitis; N32.81 Overactive bladder; I25.10 Atherosclerotic heart disease of native coronary artery without angina pectoris; E11.9 Type 2 diabetes mellitus without complications; I10 Essential (primary) hypertension; E86.0 Dehydration; F31.9 Bipolar disorder, unspecified; D64.9 Anemia, unspecified; E83.39 Other disorders of phosphorus metabolism; B96.1 Klebsiella pneumoniae [K. pneumoniae] as the cause of diseases classified elsewhere; Z90.49 Acquired absence of other specified parts of digestive tract
CPT/HCPCS: 36415; 80048; 80053; 80178; 80305; 81001; 82150; 82607; 82728; 82746; 82948; 83036; 83540; 83605; 83690; 83735; 84100; 84134; 84443; 85025; 85045; 85610; 85730; 87040; 87081; 87086; 87186; 92610; 93925; 93970; 96365; 97110; 97116; 97161-GP; 97530; 99285; J1956; J3490; J7030; J8597; Q0092

== ENCOUNTER 2019-09-04 10:37 | Inpatient (IN) | payer OTHER ==
[~2019-09-04] VITALS: Ht 162.6 cm; Wt 68.9 kg
[~2019-09-04 10:37] MED LIST changes: -CELE200C PO; +DEXT50SO52 IV; -FENO145T PO; +FLUO10CA21 PO
[2019-09-04 10:41] VITALS: BP 124/67
--- NOTE | 2019-09-04 10:43 | NUR ---
PT. BIBA TAKEN TO BED 10
[2019-09-04] MEDS ORDERED: ASPIRIN 81 MG TAB.CHEW PO ONE (11:00)
[2019-09-04] MEDS ORDERED: NACL 0.9% 1,000 ML IV ONE (11:00)
[2019-09-04] MEDS ORDERED: FAMOTIDINE 20 MG/2 ML VIAL IVP ONE (11:00)
--- NOTE | 2019-09-04 11:03 | NUR ---
89YO F BIBA FROM [facility] C/O CHEST PAIN STARTING YESTERDAY, WHICH INCREASED TODAY. STATES PAIN 8/10 WHICH RADIATES TO LEFT ABDOMEN. NITROGLYCERIN GIVEN 3X WITHOUT RELIEF. IN ER, VSS. PT NOT IN DISTRESS. NRRR. ON O2 VIA NC AT 2LPM, 02 SAT 99%. POSITIONED COMFORTABLY, SIDERAILS UP. ERMD MADE AWARE. MEDHX: HTN, BIPOLAR, DEPRESSION, ANEMIA, GERD NKA
[2019-09-04] MEDS ORDERED: NITROGLYCERIN 2% 1 GM PKT TP ONE (11:05)
[2019-09-04 11:21] LABS: BASOPHILS % (AUTO) 0.4 % (0.0-2.0); EOSINOPHILS # (AUTO) 0.4 K/uL (0-0.4); HEMATOCRIT 35.3 % (36-48); HEMOGLOBIN 11.6 g/dL (12.0-16.0); LYMPHOCYTES # (AUTO) 1.5 K/uL (2.5-16.5); LYMPHOCYTES % (AUTO) 19.2 % (20.5-51.1); MEAN CORPUSCULAR HEMOGLOBIN 29 pg (27-31); MEAN CORPUSCULAR HGB CONC 33 g/dL (33-37); MEAN CORPUSCULAR VOLUME 87.1 fL (80-94); MONOCYTES # (AUTO) 0.4 K/uL (0.8-1.0); MONOCYTES % (AUTO) 5.3 % (1.7-9.3); NEUTROPHILS # (AUTO) 5.3 K/uL (1.8-7.7); NEUTROPHILS % (AUTO) 70.1 % (42.2-75.2); PLATELET COUNT (AUTO) 303 K/uL (140-450); RED BLOOD CELL COUNT(AUTO) 4.06 MIL/uL (4.20-5.40); RED CELL DISTRIBUTION WIDTH 15.9 % (11.6-13.7); WHITE BLOOD COUNT (AUTO) 7.6 K/uL (4.8-10.8)
[2019-09-04 11:51] LABS: ALBUMIN 3.6 g/dL (3.4-5.0); ANION GAP 10.9 (8-16); ASPARTATE AMINOTRANSFERASE 17 U/L (15-37); CARBON DIOXIDE 27.5 mmol/L (21-32); CHLORIDE 108 mmol/L (98-107); CREATININE 1.1 mg/dL (0.6-1.3); GLUCOSE 101 mg/dL (74-106); POTASSIUM 4.4 mmol/L (3.5-5.1); SODIUM SERUM 142 mmol/L (136-145); TOTAL BILIRUBIN 0.3 mg/dL (0.0-1.0); UREA NITROGEN, BLOOD 26 mg/dL (7-18)
--- NOTE | 2019-09-04 11:54 | NUR ---
PT SON AT BEDSIDE; UPDATED ON PLAN OF CARE.
[2019-09-04 12:03] LABS: APPEARANCE,URINE SL CLOUDY (CLEAR); BILIRUBIN,URINE NEGATIVE (NEGATIVE); BLOOD, URINE NEGATIVE (NEGATIVE); COLOR,URINE YELLOW (YELLOW); LEUKOCYTE ESTERASE ,URINE 3+ (NEGATIVE); NITRITE, URINE POSITIVE (NEGATIVE); UGLUCOSE NEGATIVE (NEGATIVE)
[2019-09-04 12:17] LABS: RBC,URINE 0-5 /HPF (0-5)
[2019-09-04] MEDS ORDERED: MORPHINE SULFATE 2 MG/ML SYR IVP PRN (14:00)
[2019-09-04] MEDS ORDERED: ACETAMINOPHEN 325 MG TAB PO PRN (14:00)
[2019-09-04] MEDS ORDERED: DOCUSATE SODIUM 100 MG GELCAP PO PRN (14:00)
[2019-09-04] MEDS ORDERED: HYDROcodone/APAP 5/325 MG 1 TAB TAB PO PRN (14:00)
[2019-09-04] MEDS ORDERED: ONDANSETRON 4 MG/2 ML VIAL IM/IVP PRN (14:00)
[2019-09-04] MEDS ORDERED: cefTRIAXone 1,000 MG VIAL ONE (14:10)
[2019-09-04 14:29] LABS: MAGNESIUM 2.1 mg/dL (1.8-2.4); PHOSPHORUS 2.8 mg/dL (2.5-4.9)
[2019-09-04 14:44] LABS: PROTHROMBIN TIME 9.9 secs (10.8-13.4)
[2019-09-04 14:45] VITALS: BP 105/53
--- NOTE | 2019-09-04 14:45 | NUR ---
RECEIVED BEDSIDE REPORT FROM ED NURSE FELIBERTO. PT RESTING IN BED UPON ARRIVAL. ABLE TO MAKE NEEDS KNOWN.RESPIRATIONS EVEN AND UNLABORED WITH NO SOB OR RESPIRATORY DISTRESS. SKIN WARM AND DRY TO TOUCH. IV SITE IN RAC 22G IS CLEAN, DRY, AND INTACT. MRSA SWAB COLLECTED. SAFETY MEASURES IN PLACE. WILL CONTINUE TO MONITOR
--- NOTE | 2019-09-04 14:59 | NUR ---
Patient will be admitted to care of DR SHEPHERD. Admited to TELEMETRY. Will go to room 119A. Belongings list completed. Report to BRITTANIE ESTRADA.
[2019-09-04] MEDS ORDERED: NITROGLYCERIN 0.4 MG TAB SL PRN (15:00)
[2019-09-04] MEDS ORDERED: LACTOBACILLUS RHAMNOSUS GG 1 EACH CAP PO SCH (15:30)
[2019-09-04] MEDS: NACL 0.9% 1,000 ML IV SCH (15:43)
--- NOTE | 2019-09-04 15:43 | NUR ---
ADMINISTERED SCHED MED PRESCRIBED PER MD ORDER. PT TOLERATED WELL. MEDICATION EDUCATION PERFORMED. PT VERBALIZED UNDERSTANDING. SAFETY MEASURES IN PLACE. WILL CONTINUE TO MONITOR.
[2019-09-04 16:00] VITALS: BP 121/58
[2019-09-04] MEDS ORDERED: FAMOTIDINE 20 MG TAB PO SCH (16:30)
--- NOTE | 2019-09-04 17:22 | NUR ---
HOURLY ROUNDING. ADMINISTERED SCHED MED PRESCRIBED PER MD ORDER. PT TOLERATED WELL. MEDICATION EDUCATION PERFORMED. PT VERBALIZED UNDERSTANDING. SAFETY MEASURES IN PLACE. WILL CONTINUE TO MONITOR.
--- NOTE | 2019-09-04 18:19 | NUR ---
FAMILY AT BEDSIDE. PT RESTING IN BED UPON ARRIVAL. ABLE TO MAKE NEEDS KNOWN.RESPIRATIONS EVEN AND UNLABORED WITH NO SOB OR RESPIRATORY DISTRESS. SKIN WARM AND DRY TO TOUCH. SAFETY MEASURES IN PLACE. WILL CONTINUE TO MONITOR
--- NOTE | 2019-09-04 19:29 | NUR ---
ENDORSED AT BEDSIDE TO NIGHTSHIFT NURSE. PT RESTING IN BED UPON ARRIVAL. ABLE TO MAKE NEEDS KNOWN.RESPIRATIONS EVEN AND UNLABORED WITH NO SOB OR RESPIRATORY DISTRESS. SKIN WARM AND DRY TO TOUCH. SAFETY MEASURES IN PLACE. PT IS STABLE
--- NOTE | 2019-09-04 19:30 | NUR ---
RECEIVED REPORT FROM DAYSHIFT NURSE AT PATIENTS BEDSIDE. AWAKE AND ALERT, SPEAKS (PAKISTAN ONLY-URI?) ABLE TO MAKE NEEDS KNOWN, FOLLOWS SOME SIMPLE COMMANDS. SON AT BEDSIDE, ABLE TO TRANSLATE. NASAL CANNULA IN PLACE WITH HUMIDIFIER AT 2LPM. LUNG SOUNDS CLEAR, NO SHORTNESS OF BREATH, NO COUGH OR CONGESTION NOTED, SATURATIONS 97%. CONNECTED TO HIGHWAY MAINTENANCE CREW WORKER, HR- 80 BPM, S1S2 HEARD. RIGHT AC PERIPHERAL IV, 22G, FLUSHED AND PATENT WITHOUT SYMPTOMS, INFUSING NS @ 60ML/HR. SKIN IS WARM AND DRY, INTACT. ABDOMEN LARGE, SOFT AND NONTENDER, ACTIVE BOWEL SOUNDS. PATIENT IS INCONTINENT, ROXANE PADS IN PLACE. GENERALIZED WEAKNESS NOTED, BEDBOUND/BED REST. CALL LIGHT WITHIN REACH, PATIENT AND SON UPDATED ON CARE PLAN. SAFETY ALARMS IN PLACE, BED LOCKED AND IN LOWEST POSITION, VALUABLES WITHIN REACH. WILL CONTINUE TO MONITOR.
--- NOTE | 2019-09-04 19:45 | NUR ---
ASSISTING TEST CENTER ADMINISTRATOR WITH LAB DRAW-TROPONIN. UNSUCCESSFUL AFTER 2 ATTEMPTS. ATTEMPTED LAB DRAW AT RIGHT AC, PERIPHERAL IV BUT NO GOOD BLOOD RETURN. TEST CENTER ADMINISTRATOR ABLE TO DRAW LAB AT LEFT LOWER ARM, PT TOLERATED FAIRLY, SON AT BEDSIDE.
[2019-09-04 20:00] VITALS: BP 118/50
[2019-09-04] MEDS: GABAPENTIN 300 MG CAP PO SCH (20:26)
[2019-09-04] MEDS: OXYBUTYNIN 5 MG TAB PO SCH (20:26)
[2019-09-04] MEDS: OLANZapine 5 MG TAB PO SCH (20:27)
[2019-09-04] MEDS: LITHIUM CARBONATE 300 MG TAB PO SCH (20:27)
--- NOTE | 2019-09-04 22:25 | NUR ---
PATIENT RESTING WELL IN BED, EYES CLOSED, SNORING LOUDLY, SAFETY PRECAUTIONS IN PLACE, SIDERAILS UPx3, BED LOCKED AND IN LOWEST POSITION, CALL LIGHT WITHIN REACH. FLACC 0.
[2019-09-05] VITALS: BP 116/58
--- NOTE | 2019-09-05 00:30 | NUR ---
IV PUMP KEEPS ALARMING, PATIENT HAS ARM BENT FOR COMFORT, READJUSTED ARM AND FIXED LINE, ORIENTED PATIENT TO TRY TO KEEP ARM STRAIGHT. ALL NEEDS MET AT THIS TIME, IV FLUIDS INFUSING AT 60ML/HR.
--- NOTE | 2019-09-05 02:15 | NUR ---
TURNED AND REPOSITIONED PATIENT, TOLERATED FAIRLY, PATIENT NOT TURKMEN SPEAKING BUT ABLE TO NOD HEAD YES AND NO. DENIES PAIN, SKIN INTACT, OFFLOADED PRESSURE AREAS.
[2019-09-05 04:00] VITALS: BP 123/66
--- NOTE | 2019-09-05 04:10 | NUR ---
RESTING WELL IN BED, EYES CLOSED, ON NASAL CANNULA 2LPM, TURNED AND REPOSITIONED, DENIES PAIN-SHAKES HEAD NO. ALL VITALS WNL. SAFETY ALARMS IN PLACE. WILL CONTINUE TO MONITOR.
--- NOTE | 2019-09-05 06:04 | NUR ---
PATIENT TAKEN TO CT VIA WHEELCHAIR FOR CT OF ABDOMEN.
[2019-09-05 06:25] LABS: BASOPHILS # (AUTO) 0.1 K/uL (0.00-0.22); BASOPHILS % (AUTO) 0.7 % (0.0-2.0); EOSINOPHILS # (AUTO) 0.6 K/uL (0-0.4); EOSINOPHILS % (AUTO) 7.7 % (0.0-4.0); HEMATOCRIT 31.2 % (36-48); HEMOGLOBIN 10.6 g/dL (12.0-16.0); LYMPHOCYTES % (AUTO) 25.5 % (20.5-51.1); MEAN CORPUSCULAR HEMOGLOBIN 30 pg (27-31); MEAN CORPUSCULAR HGB CONC 34 g/dL (33-37); MEAN CORPUSCULAR VOLUME 87.4 fL (80-94); MONOCYTES # (AUTO) 0.4 K/uL (0.8-1.0); MONOCYTES % (AUTO) 4.7 % (1.7-9.3); NEUTROPHILS # (AUTO) 4.8 K/uL (1.8-7.7); NEUTROPHILS % (AUTO) 61.4 % (42.2-75.2); PLATELET COUNT (AUTO) 278 K/uL (140-450); RED BLOOD CELL COUNT(AUTO) 3.56 MIL/uL (4.20-5.40); RED CELL DISTRIBUTION WIDTH 15.9 % (11.6-13.7); WHITE BLOOD COUNT (AUTO) 7.7 K/uL (4.8-10.8)
[2019-09-05] MEDS: GABAPENTIN 300 MG CAP PO SCH ×3 (06:30→20:16)
[2019-09-05 06:54] LABS: CHLORIDE 111 mmol/L (98-107); CREATININE 0.9 mg/dL (0.6-1.3); GLUCOSE 100 mg/dL (74-106); POTASSIUM 4.3 mmol/L (3.5-5.1); SODIUM SERUM 142 mmol/L (136-145); UREA NITROGEN, BLOOD 19 mg/dL (7-18)
[2019-09-05] MEDS: NACL 0.9% 1,000 ML IV SCH ×2 (07:10→23:50)
[2019-09-05 07:24] LABS: ANION GAP 8.9 (8-16); CARBON DIOXIDE 26.4 mmol/L (21-32)
--- NOTE | 2019-09-05 07:32 | NUR ---
RECEIVED BEDSIDE REPORT FROM EXTRACORPOREAL TECHNICIAN RN FOR CONTINUITY OF CARE. PT IS AAOX2 PER HER SON, ABLE TO MAKE NEEDS KNOWN. PT RESTING IN BED UPON ARRIVAL. RESPIRATIONS EVEN AND UNLABORED WITH NO SOB OR RESPIRATORY DISTRESS. SKIN WARM AND DRY TO TOUCH. IV SITE IN RAC 22G IS CLEAN, DRY, AND INTACT. SAFETY MEASURES IN PLACE. BOARD UPDATED. DISCUSSED POC WITH PT BUT PT UNABLE TO COMPREHEND FULLY DUE TO LANGUAGE BARRIER. WILL MONITOR PT CLOSELY.
[2019-09-05 08:00] VITALS: BP 113/62
--- NOTE | 2019-09-05 08:27 | NUR ---
PATIENT HAS BEEN SCREENED AND CATEGORIZED HIGH NUTRITION RISK. PATIENT WILL BE SEEN WITHIN 1-2 DAYS OF ADMISSION. 09/05/19-09/06/[address]
[2019-09-05] MEDS ORDERED: FAMOTIDINE 20 MG TAB PO SCH (09:00)
[2019-09-05] MEDS: CLOPIDOGREL 75 MG TAB PO SCH (09:48)
--- NOTE | 2019-09-05 09:48 | NUR ---
ADMIN MORNING MEDS. PT TOLERATED WELL. ALL NEEDS MET.
[2019-09-05] MEDS: ASPIRIN 81 MG TAB.CHEW PO SCH (09:49)
[2019-09-05] MEDS: OXYBUTYNIN 5 MG TAB PO SCH ×2 (09:49→20:14)
[2019-09-05] MEDS: amLODIPine 5 MG TAB PO SCH (09:49)
[2019-09-05] MEDS: LACTOBACILLUS RHAMNOSUS GG 1 EACH CAP PO SCH (09:50)
[2019-09-05] MEDS: FLUoxetine 10 MG CAP PO SCH (09:50)
[2019-09-05] MEDS: LISINOPRIL 5 MG TAB PO SCH (09:50)
[2019-09-05] MEDS: ATORVASTATIN 20 MG TAB PO SCH (09:51)
--- NOTE | 2019-09-05 10:47 | NUR ---
Customer Solutions Architect Note: Basic Screen: Yes High Risk DC Screen [place]: LETA SALGADO Home Relationship: CHILD Pre-Admission Living Arrangements: SNF Prior ADL Needs Assistance Current Home Health Name/Tel: N/A Current DME/02 Name/Tel: N/A Current Hospice Name/Tel: N/A Current Dialysis Name/Tel: N/A Healthcare Decision Maker: Next of Kin Other: LETA SALGADO Advance Directive No Physician Orders for Life Sustaining Treatment Form No Patient/Family Have Educational Needs No Discipline: Case Mgt/Social Svcs Tentative Discharge Plan/Destination: SNF/ECF Will require assistance post discharge: No Referred to [facility]: No Tentative Discharge Plan Summary: Patient is an 89-year-old female admitted for chest pain. Patient has PMHX of HTN, GERD, bipolar disorder, and degenerative joint disease. Patient was admitted from [facility]. SW contacted [facility] and spoke to Munir from admissions [phone]. Per Munir, patient is half-way and on a bed hold. Patient has no advanced directive on file. Patient's healthcare decision maker is patient's childd Leta Salgado [phone]. Munir reported that patient is wheelchair bound and is alert/oriented @ baseline but there is a language barrier. Patient needs assistance with ADLs. Patient's tentative discharge plan is for patient to return to [facility]. No further needs identified. Signature: GRISEL El Date: Sep 05, 2019 Time: 10:46
--- NOTE | 2019-09-05 11:16 | NUR ---
PT SLEEPING. ALL NEEDS MET.
[2019-09-05 12:00] VITALS: BP 131/54
--- NOTE | 2019-09-05 13:27 | NUR ---
09/05/19 RD INITIAL ASSESSMENT COMPLETED PLEASE REFER TO NUTRITION ASSESSMENT UNDER CARE ACTIVITY FOR ESTIMATED NUTRITIONAL NEEDS. 1. CONTINUE NPO MEDICALLY APPROPRIATE 2. IF/WHEN PATIENT IS MEDICALLY STABLE TO ADVANCE TO PO DIET CONSIDER A SOFT 2GM NA DIET 3. RD TO FOLLOW-UP 2-3 DAYS, HIGH RISK CHRISTOPHER HYDE RD
--- NOTE | 2019-09-05 13:41 | NUR ---
PT RESTING IN BED WITH FAMILY AT BEDSIDE. ALL NEEDS MET.
--- NOTE | 2019-09-05 15:29 | NUR ---
PT RESTING IN BED. ALL NEEDS MET. WILL CONTINUE TO ROUND ON PT.
[2019-09-05 16:00] VITALS: BP 125/53
--- NOTE | 2019-09-05 17:41 | NUR ---
PT RESTING IN BED. ALL NEEDS MET.
--- NOTE | 2019-09-05 19:56 | NUR ---
ENDORSED PT TO SENIOR TECHNICAL WRITER FOR CONTINUITY OF CARE. PT IN STABLE CONDITION AT THIS TIME.
--- NOTE | 2019-09-05 19:57 | NUR ---
ENDORSEMENT RECEIVED AT BEDSIDE FROM AM SHIFT RN. PATIENT IS AWAKE, ALERT ORIENTED X 2. ON O2 AT 2LPM VIA NC. RESPIRATION EVEN AND UNLABORED. SKIN IS INTACT. IV SITE AT RIGHT AC 22G, INTACT AND PATENT. NPO EXCEPT MEDS. LOW BED AND BED ALARM ACTIVATED, SAFETY MEASURES IN PLACE. CALL LIGHT WITHIN REACH.
[2019-09-05 20:00] VITALS: BP 99/51
[2019-09-05] MEDS: LITHIUM CARBONATE 300 MG TAB PO SCH (20:15)
[2019-09-05] MEDS: OLANZapine 5 MG TAB PO SCH (20:16)
--- NOTE | 2019-09-05 20:29 | NUR ---
ADMINISTERED DUE MEDS PER MD ORDER. TOLERATED WELL. MED ED PROVIDED. NO SOB NOTED. WILL CONTINUE TO MONITOR.
--- NOTE | 2019-09-05 22:00 | NUR ---
MADE ROUNDS. QUALITY ASSURANCE SUPERVISOR DOING TURNING AND REPOSITIONING., NO DISCOMFORT NOTED.
[2019-09-06] VITALS: BP 111/53
--- NOTE | 2019-09-06 01:30 | NUR ---
IV ACCESS INFILTRATED. DC'D AND STARTED A NEW IV LINE ON RT HAND G22. CLEAR AND PATENT.
--- NOTE | 2019-09-06 02:00 | NUR ---
MADE ROUNDS. PT ASLEEP. NO S/S OF ANY DISCOMFORT NOTED.
[2019-09-06 04:00] VITALS: BP 156/64
--- NOTE | 2019-09-06 04:00 | NUR ---
PT HAS BEEN REPOSITIONED FOR COMFORT.
[2019-09-06] MEDS ORDERED: LIDOCAINE VISCOUS 2% 20 ML UDC PO ONE (06:40)
[2019-09-06] MEDS ORDERED: DICYCLOMINE HCL LIQUID 10 MG/5 ML UDC PO ONE (06:40)
[2019-09-06] MEDS ORDERED: ALUMINUM HYD/MAG/SIMETHICONE 30 ML UDC PO ONE (06:40)
[2019-09-06 07:09] LABS: BASOPHILS % (AUTO) 0.7 % (0.0-2.0); EOSINOPHILS # (AUTO) 0.4 K/uL (0-0.4); EOSINOPHILS % (AUTO) 7.3 % (0.0-4.0); HEMATOCRIT 36.3 % (36-48); HEMOGLOBIN 12.2 g/dL (12.0-16.0); LYMPHOCYTES # (AUTO) 1.2 K/uL (2.5-16.5); LYMPHOCYTES % (AUTO) 20.7 % (20.5-51.1); MEAN CORPUSCULAR HEMOGLOBIN 29 pg (27-31); MEAN CORPUSCULAR HGB CONC 34 g/dL (33-37); MEAN CORPUSCULAR VOLUME 87.1 fL (80-94); MONOCYTES # (AUTO) 0.3 K/uL (0.8-1.0); MONOCYTES % (AUTO) 4.6 % (1.7-9.3); NEUTROPHILS # (AUTO) 3.9 K/uL (1.8-7.7); NEUTROPHILS % (AUTO) 66.7 % (42.2-75.2); PLATELET COUNT (AUTO) 288 K/uL (140-450); RED BLOOD CELL COUNT(AUTO) 4.17 MIL/uL (4.20-5.40); RED CELL DISTRIBUTION WIDTH 15.7 % (11.6-13.7); WHITE BLOOD COUNT (AUTO) 5.9 K/uL (4.8-10.8)
[2019-09-06] MEDS: GABAPENTIN 300 MG CAP PO SCH ×2 (07:20→13:28)
--- NOTE | 2019-09-06 07:20 | NUR ---
RECEIVED BEDSIDE REPORT FROM PARTS CLEANER NURSE. PT IS AWAKE IN BED, NO S/S OF DISTRESS NOTED. PT IS ON ROOM AIR, SKIN IS INTACT. IV SITE ON THE R HAND 22 G INFUSING NS 60 ML/HR. FALL PRECAUTIONS IN PLACE. CALL LIGHT IS WITHIN REACH. WILL CONTINUE TO MONITOR.
--- NOTE | 2019-09-06 07:20 | NUR ---
ENDORSED PT IN STABLE CONDITION TO AM NURSE. AWAKE, ALERT AND ORIENTED X2. BEDREST. ON TELE MONITOR. WITH IV FLUIDS INFUSING WELL ON THE RT AC G#20. NO S/S OF ANY DISCOMFORT NOR PAIN NOTED. FREQ ROUNDS NEEDED. SIDE RAILS UP X2. CALL LIGHT PLACED WITHIN EASY REACH. WILL CONTINUE TO MONITOR.
[2019-09-06 07:34] LABS: ANION GAP 9.3 (8-16); CARBON DIOXIDE 29.2 mmol/L (21-32); CHLORIDE 110 mmol/L (98-107); GLUCOSE 87 mg/dL (74-106); POTASSIUM 4.5 mmol/L (3.5-5.1); SODIUM SERUM 144 mmol/L (136-145); UREA NITROGEN, BLOOD 16 mg/dL (7-18)
[2019-09-06 08:00] VITALS: BP 143/61
[2019-09-06] MEDS ORDERED: DIT5 PO (08:13)
[2019-09-06] MEDS ORDERED: LACT10CA PO (08:13)
[2019-09-06] MEDS ORDERED: ROC1PM IV (08:13)
[2019-09-06] MEDS ORDERED: PANTOPRAZOLE 40 MG INJ VIAL IVP SCH (09:00)
[2019-09-06] MEDS: CLOPIDOGREL 75 MG TAB PO SCH (09:42)
[2019-09-06] MEDS: OXYBUTYNIN 5 MG TAB PO SCH (09:42)
[2019-09-06] MEDS: ATORVASTATIN 20 MG TAB PO SCH (09:42)
[2019-09-06] MEDS: ASPIRIN 81 MG TAB.CHEW PO SCH (09:42)
[2019-09-06] MEDS: LACTOBACILLUS RHAMNOSUS GG 1 EACH CAP PO SCH (09:42)
[2019-09-06] MEDS: LISINOPRIL 5 MG TAB PO SCH (09:42)
[2019-09-06] MEDS: FLUoxetine 10 MG CAP PO SCH (09:42)
[2019-09-06] MEDS: amLODIPine 5 MG TAB PO SCH (09:42)
--- NOTE | 2019-09-06 09:45 | NUR ---
AM MEDS ADMINISTERED, PT TOLERATED WELL.
[2019-09-06 12:00] VITALS: BP 130/49
[2019-09-06] MEDS ORDERED: BISACODYL 10 MG SUPP RC SCH (12:00)
--- NOTE | 2019-09-06 12:00 | NUR ---
PT CHANGED AND GOTTEN READY TO TRANSFER BACK TO [facility] [place].
--- NOTE | 2019-09-06 12:21 | NUR ---
PT PULLED OUT HER IV. WILL INSERT A NEW ONE. Addendum: 09/06/19 at 1324 by Sarah Mcpherson RN NEW IV: Ed AC 24 G
--- NOTE | 2019-09-06 15:00 | NUR ---
GAVE PHONE REPORT TO BRITTANIE BOB, AT [facility] [place], FOR PT'S TRANSFER.
--- NOTE | 2019-09-06 15:03 | NUR ---
PT WORKING WITH PHYSICAL THERAPIST AT THIS TIME
--- NOTE | 2019-09-06 15:40 | NUR ---
PT HAD A SOFT BM
--- NOTE | 2019-09-06 15:45 | NUR ---
CALLED BOTH CONTACTS ON PT'S FACE SHEET TO NOTIFY OF PT'S TRANSFER BACK TO [facility] [place], NO ANSWER FROM BOTH.
--- NOTE | 2019-09-06 15:52 | NUR ---
PT HAS TRANSFERRED BACK TO [facility] [place] [facility]. PT WAS CLEANED AND DRESSED FOR TRANSFER. IV SITE WAS MAINTAINED FOR IV ABX ADMINISTRATION AT [facility] [place]. WRIST BAND REMOVED. PT LEFT IN STABLE CONDITION WITH ALL HER BELONGINGS, [facility]IA [facility]. PNA AND FLU VACCINES ARE UP TO DATE. [facility] AWARE OF PT'S RETURN.
== END 2019-09-06 15:48 | disposition home or self-care (01) | DRG 206 ==
LOC: MED 10:37 → MTU 14:04
PROVIDERS: ADMIT General Practice; ATTEND General Practice
DX: M94.0 Chondrocostal junction syndrome [Tietze] (principal); N39.0 Urinary tract infection, site not specified; J98.11 Atelectasis; D64.9 Anemia, unspecified; F31.9 Bipolar disorder, unspecified; I10 Essential (primary) hypertension; K21.9 Gastro-esophageal reflux disease without esophagitis; M19.90 Unspecified osteoarthritis, unspecified site; J45.909 Unspecified asthma, uncomplicated; I25.10 Atherosclerotic heart disease of native coronary artery without angina pectoris; N32.81 Overactive bladder; R73.03 Prediabetes; M17.12 Unilateral primary osteoarthritis, left knee; K57.30 Diverticulosis of large intestine without perforation or abscess without bleeding; R19.7 Diarrhea, unspecified; A08.4 Viral intestinal infection, unspecified; E86.0 Dehydration; Z90.49 Acquired absence of other specified parts of digestive tract
CPT/HCPCS: 36415; 71045; 73562; 74018; 74150; 74250; 80048; 80053; 80178; 81001; 82948; 83605; 83690; 83735; 83880; 84100; 84484; 85025; 85610; 85730; 87040; 87081; 87086; 87186; 93005; 96365; 96375; 97110; 97112; 97116; 97161-GP; 97530; 99285; C9113; J0696; J1644; J3490; J7030; J7060; Q0092

== ENCOUNTER 2019-09-13 16:53 | Inpatient (IN) | payer OTHER ==
[~2019-09-13] VITALS: Ht 157.5 cm; Wt 69.9 kg
[~2019-09-13 16:53] MED LIST changes: -DETLA4 PO; -DEXT50SO52 IV; +DIT5 PO; +LACT10CA PO; +ROC1PM IV
--- NOTE | 2019-09-13 16:55 | NUR ---
PT TAKEN VIA GURNEY TO ROOM 1.
[2019-09-13 17:05] VITALS: BP 134/47
--- NOTE | 2019-09-13 17:20 | NUR ---
89 Y/F BIB AMBULANCE FROM [facility] [place] FOR FOLLOW UP ABD PAIN. PER EMS PT HAS HAD INTRACTABLE ABDOMINAL PAIN. PT HAS HAD A CT AND US AT FACILITY. PT SENT FOR CT SCAN WITH CONTRAST OF ABDOMEN PER FACILITIES NOTE. RR EVEN AND UNLABORED, ABDOMEN SOFT, BS ACTIVE. PT EPISCOPALIAN SPEAKING. NKDA PMH- GERD, ARTHRITIS, ATHEROSCLEROTIC HEART DIEASE, DIRSORDER OF BONE, CKD, GLAUCOMA.
[2019-09-13] MEDS ORDERED: NACL 0.9% 1,000 ML IV SCH (17:35)
--- NOTE | 2019-09-13 17:50 | NUR ---
LAB AT BEDSIDE.
[2019-09-13 18:08] LABS: BASOPHILS # (AUTO) 0.1 K/uL (0.00-0.22); BASOPHILS % (AUTO) 0.7 % (0.0-2.0); EOSINOPHILS # (AUTO) 0.7 K/uL (0-0.4); EOSINOPHILS % (AUTO) 8.3 % (0.0-4.0); HEMATOCRIT 35.7 % (36-48); HEMOGLOBIN 11.4 g/dL (12.0-16.0); LYMPHOCYTES # (AUTO) 2.4 K/uL (2.5-16.5); LYMPHOCYTES % (AUTO) 28.8 % (20.5-51.1); MEAN CORPUSCULAR HEMOGLOBIN 29 pg (27-31); MEAN CORPUSCULAR HGB CONC 32 g/dL (33-37); MEAN CORPUSCULAR VOLUME 90.3 fL (80-94); MONOCYTES # (AUTO) 0.5 K/uL (0.8-1.0); NEUTROPHILS # (AUTO) 4.7 K/uL (1.8-7.7); NEUTROPHILS % (AUTO) 56.2 % (42.2-75.2); PLATELET COUNT (AUTO) 291 K/uL (140-450); RED BLOOD CELL COUNT(AUTO) 3.95 MIL/uL (4.20-5.40); WHITE BLOOD COUNT (AUTO) 8.3 K/uL (4.8-10.8)
--- NOTE | 2019-09-13 18:14 | NUR ---
EKG AT BEDSIDE.
[2019-09-13 18:27] LABS: ALBUMIN 3.6 g/dL (3.4-5.0); ANION GAP 12.5 (8-16); ASPARTATE AMINOTRANSFERASE 34 U/L (15-37); CHLORIDE 104 mmol/L (98-107); CREATININE 1.4 mg/dL (0.6-1.3); GLUCOSE 91 mg/dL (74-106); LIPASE 89 U/L (73-393); POTASSIUM 4.5 mmol/L (3.5-5.1); SODIUM SERUM 139 mmol/L (136-145); TOTAL BILIRUBIN 0.3 mg/dL (0.0-1.0); UREA NITROGEN, BLOOD 27 mg/dL (7-18)
--- NOTE | 2019-09-13 19:01 | NUR ---
CT AT BEDSIDE.
--- NOTE | 2019-09-13 19:43 | NUR ---
SON AT BEDSIDE, PT SITTING UP IN BED, NO DISTRESS.
--- NOTE | 2019-09-13 19:50 | NUR ---
COLLECTED PT'S URINE SENT TO LAB.
[2019-09-13] MEDS ORDERED: ENALAPRILAT 2.5 MG/2 ML VIAL IVP ONE (20:05)
[2019-09-13 20:27] LABS: BILIRUBIN,URINE NEGATIVE (NEGATIVE); BLOOD, URINE NEGATIVE (NEGATIVE); LEUKOCYTE ESTERASE ,URINE 3+ (NEGATIVE); NITRITE, URINE POSITIVE (NEGATIVE); PH,URINE 5.5 (5.0-9.0); UGLUCOSE NEGATIVE (NEGATIVE)
[2019-09-13 20:30] LABS: APPEARANCE,URINE HAZY (CLEAR); COLOR,URINE STRAW (YELLOW)
--- NOTE | 2019-09-13 20:32 | NUR ---
PER DR. JOSÉ, PT IS CLEARED TO EAT, SANDWICH PROVIDED TO PT.
[2019-09-13 20:43] LABS: RBC,URINE NONE SEEN /HPF (0-5); WBC,URINE TOO MANY TO COUNT /HPF (0-5)
--- NOTE | 2019-09-13 21:15 | NUR ---
BLOOD CULTURES COLLECTED 15 MINS APART AND LAB CALLED TO TRAUMA REGISTRAR CULTURES.
[2019-09-13] MEDS ORDERED: cefTRIAXone 1,000 MG VIAL ONE (21:17)
--- NOTE | 2019-09-13 21:39 | NUR ---
PT RR UNLABORED. PULSE OX 90, PT PLACED ON 2 L NC. PT TOLERATING WELL.
--- NOTE | 2019-09-13 22:16 | NUR ---
Pt report given to BRITTANIE Choudhury. Transfer of care at this time.
--- NOTE | 2019-09-13 22:20 | NUR ---
RECEIVED REPORT FROM ER NURSE, PATIENT IN STABLE CONDITION. CONNECTED TO MONITOR, ALL VITALS WNL, HEART RATE TRENDING LOW IN 60's. IV ANTIBIOTICS COMPLETE, FLUSHED LINE AND SALINE LOCKED. RIGHT AC 20G, ASYMPTOMATIC, AND LEFT AC 24G, FLUSHED AND SALINE LOCKED, ASYMPTOMATIC. SIDERAILS UPx1. WILL CONTINUE TO MONITOR.
--- NOTE | 2019-09-13 22:45 | NUR ---
DR. MELVIN AT BEDSIDE TO ASSESS PATIENT.
--- NOTE | 2019-09-13 23:25 | NUR ---
PATIENTS PROJECT ENGINEER CHEMICALS ALARMING SHOWING EXTREME BRADYCARDIA, PATIENT IS AWAKE AND ABLE TO TALK (TENRIISM SPEAKING ONLY) NO SIGNS/SYMPTOMS OF DISTRESS, HEART RATE TRENDS LOW IN 50-60'S BUT AT REST, FLUCTUATES IN 40's. CONNECTED TO CONTINUOUS CARDIAC MONITORING, SAFETY MEASURES IN PLACE.
--- NOTE | 2019-09-13 23:55 | NUR ---
1 L NS BOLUS NOT CHARTED, PREVIOUS RN ENDORSED SHE GAVE 1 L BOLUS BUT 1 L NS IV CURRENTLY HANGING BUT NOT INFUSING. UNSURE IF IV FLUIDS WAS GIVEN.
[2019-09-14] MEDS ORDERED: DOCUSATE SODIUM 100 MG GELCAP PO PRN (00:15)
[2019-09-14] MEDS ORDERED: ACETAMINOPHEN 325 MG TAB PO PRN (00:15)
[2019-09-14] MEDS ORDERED: ONDANSETRON 4 MG/2 ML VIAL IM/IVP PRN (00:15)
--- NOTE | 2019-09-14 00:35 | NUR ---
PATIENT TAKEN TO RESTROOM, AMBULATES WITH STANDBY ASSISTANCE. VOIDED AND WASHED HANDS AND FACE AT SINK. PATIENT TOOK OUT DENTURES TO RINSE OUT. BACK TO BED 1 WITHOUT INCIDENT, CONNECTED TO MONITOR.
--- NOTE | 2019-09-14 01:40 | NUR ---
PATIENT TRANSFERRED TO [facility] BED 122B, CONNECTED TO MONITOR. AMBULATED TO BED WITHOUT INCIDENT. REPORT GIVEN TO BRITTANIE CAMARGO. ON NASAL CANNULA 2LPM. PERIPHERAL IV'S-RAC 20G, AND LAC 24G, FLUSHED AND PATENT, ASYMPTOMATIC, BOTH SALINE LOCKED. UPDATED PATIENT ON TREATMENT PLAN, ORIENTED TO ROOM AND RN. CALL LIGHT WITHIN REACH, CHECKED VITALS WITH NEW RN, ALL VITALS WNL.
[2019-09-14 02:00] VITALS: BP 134/65
[2019-09-14] MEDS: NACL 0.9% 1,000 ML IV SCH ×2 (02:00→16:52)
--- NOTE | 2019-09-14 02:00 | NUR ---
RECEIVED BEDSIDE REPORT FROM ER NURSE, AIDA. PT CAME IN [facility] AND ABLE TO AMBULATE TO [facility] BED. BREATHING EVEN AND UNLABORED WITH 2LPM, O2 VIA NC. SKIN INTACT, WARM AND DRY TO TOUCH. MRSA SWAB DONE, VS CHECKED, WITHIN PT'S BASELINE, DX: UTI, BOARD UPDATED, IV SITE ON LAC 24G, AND RFA 20G, PATENT, INTACT AND ASYMPTOMATIC. ALL SAFETY MEASUREMENT ARE MET. BED IN LOW POSITION, CALL LIGHT WITHIN REACH.
[2019-09-14] MEDS ORDERED: NITR0.4T2 SL (02:22)
[2019-09-14] MEDS ORDERED: NITROGLYCERIN 0.4 MG TAB SL PRN (02:25)
[2019-09-14 02:27] LABS: PROTHROMBIN TIME 9.7 secs (10.8-13.4)
[2019-09-14 02:33] LABS: FREE T4 (FREE THYROXINE) 1.25 ng/dL (0.76-1.46); MAGNESIUM 2.1 mg/dL (1.8-2.4); PHOSPHORUS 3.4 mg/dL (2.5-4.9); THYROID STIMULATING HORMONE 3.44 uIU/mL (0.34-3.74)
[2019-09-14 04:00] VITALS: BP 133/59
--- NOTE | 2019-09-14 04:04 | NUR ---
VS CHECKED, WITHIN PT'S BASELINE, WILL CONTINUE TO MONITOR.
[2019-09-14] MEDS ORDERED: PIPERACILLIN/TAZOBACTAM 2.25 GM VIAL IV ONE (05:01)
[2019-09-14] MEDS: PIPERACILLIN/TAZOBACTAM 2.25 GM in DEXTROSE 5% 50 ML IV SCH ×4 (05:05→23:25)
--- NOTE | 2019-09-14 05:06 | NUR ---
GIVEN ZOSYN MD ORDERED. PT TOLERATED WELL. WILL CONTINUE TO MONITOR.
--- NOTE | 2019-09-14 06:31 | NUR ---
PATIENT HAS BEEN SCREENED AND CATEGORIZED HIGH NUTRITION RISK. PATIENT WILL BE SEEN WITHIN 1-2 DAYS OF ADMISSION. 09/15/19-09/16/19 CHETAN PINA MS, RDN
[2019-09-14] MEDS: FAMOTIDINE 20 MG TAB PO SCH ×3 (06:34→17:00)
--- NOTE | 2019-09-14 06:34 | NUR ---
GIVEN PEPCID MD ORDERED. PT TOLERATED WELL.
--- NOTE | 2019-09-14 07:25 | NUR ---
RECEIVED BEDSIDE SHIFT REPORT FROM INTERNAL CONTROLS SPECIALIST NURSE FOR CONTINUATION OF CARE.
[2019-09-14 08:00] VITALS: BP 135/61
[2019-09-14] MEDS: CLOPIDOGREL 75 MG TAB PO SCH (08:59)
[2019-09-14] MEDS: LACTOBACILLUS RHAMNOSUS GG 1 EACH CAP PO SCH ×2 (09:00)
[2019-09-14] MEDS ORDERED: OLOPATADINE HCL OP SCH (09:00)
[2019-09-14] MEDS: GABAPENTIN 300 MG CAP PO SCH ×3 (09:01→17:00)
[2019-09-14] MEDS: OXYBUTYNIN 5 MG TAB PO SCH ×2 (09:01→20:30)
[2019-09-14] MEDS: amLODIPine 5 MG TAB PO SCH (09:01)
[2019-09-14] MEDS: FLUoxetine 10 MG CAP PO SCH (09:01)
--- NOTE | 2019-09-14 10:50 | NUR ---
PATIENT TOLERATED MED PASS WITH NO SIGNS OF CONCERN, PATIENT IS NON-MOSOTHO SPEAKING. PATIENT IS RESTING IN BED, LINENS AND GOWN CHANGED FOR COMFORT AND HYGIENE. PATIENT DENIES PAIN, FLACC-O. CALL LIGHT ON AND WITHIN REACH, WILL CONTINUE TO MONITOR.
[2019-09-14 11:19] LABS: CHOL/HDL RATIO 3.8 (1-4.5)
[2019-09-14 12:00] VITALS: BP 126/55
--- NOTE | 2019-09-14 13:00 | NUR ---
PATIENT RESTING IN BED, FAMILY MEMBER AT BEDSIDE. DIET CHANGED TO FULL LIQUID. WILL CONTINUE TO MONITOR. ALL CONCERNS ADDRESSED AT THIS TIME.
--- NOTE | 2019-09-14 15:00 | NUR ---
ROUNDS MADE FOR SAFETY. CALL LIGHT ON AND WITHIN REACH. WILL CONTINUE TO MONITOR.
[2019-09-14 16:00] VITALS: BP 138/55
--- NOTE | 2019-09-14 19:15 | NUR ---
RECEIVED PATIENT FROM AM SHIFT NURSE IN STABLE CONDITION FOR CONTINUITY OF CARE. SON AT BEDSIDE. RESPIRATIONS EVEN, UNLABORED. IV SITE TO RIGHT AC 20G, INFUSING FLUIDS WELL. S/L TO LEFT AC 24G PATENT/INTACT. NO C/O PAIN. NO S/SX ACUTE DISTRESS. SAFETY PRECAUTIONS IN PLACE. ISOLATION PRECAUTIONS OBSERVED BY ALL STAFF. CALL LIGHT WITHIN REACH. WILL CONTINUE TO MONITOR.
--- NOTE | 2019-09-14 19:26 | NUR ---
BEDSIDE SHIFT REPORT GIVEN TO ROVING WEIGHT GAUGER NURSE FOR CONTINUATION OF CARE.
[2019-09-14 20:00] VITALS: BP 134/53
[2019-09-14] MEDS: LITHIUM CARBONATE 300 MG TAB PO SCH (20:30)
--- NOTE | 2019-09-14 20:30 | NUR ---
IV SITE ACCIDENTLY PULLED OUT BY PATIENT. DISCONTINUED IV SITE, CANNULA INTACT. NO BLEEDING NOTED. NO C/O PAIN. CALL LIGHT WITHIN REACH. WILL CONTINUE TO MONITOR.
[2019-09-14] MEDS ORDERED: OLANZapine 5 MG TAB PO SCH (21:00)
--- NOTE | 2019-09-14 22:00 | NUR ---
PATIENT AWAKE AND IN STABLE CONDITION. NO C/O PAIN. NO S/SX ACUTE DISTRESS. CALL LIGHT WITHIN REACH. WILL CONTINUE TO MONITOR.
[2019-09-15] VITALS: BP 99/51
--- NOTE | 2019-09-15 00:04 | NUR ---
PATIENT ASLEEP AND IN STABLE CONDITION. NO C/O PAIN. NO S/SX ACUTE DISTRESS. CALL LIGHT WITHIN REACH. WILL CONTINUE TO MONITOR.
--- NOTE | 2019-09-15 03:23 | NUR ---
MADE ROUNDS. PATIENT ASLEEP AND IN STABLE CONDITION. NO C/O PAIN. NO S/SX ACUTE DISTRESS. CALL LIGHT WITHIN REACH. WILL CONTINUE TO MONITOR.
[2019-09-15 04:00] VITALS: BP 120/60
[2019-09-15] MEDS ORDERED: PIPERACILLIN/TAZOBACTAM 2.25 GM VIAL IV ONE (04:54)
[2019-09-15] MEDS: PIPERACILLIN/TAZOBACTAM 2.25 GM in DEXTROSE 5% 50 ML IV SCH ×3 (05:01→17:49)
--- NOTE | 2019-09-15 05:52 | NUR ---
MADE ROUNDS. PATIENT ASLEEP AND IN STABLE CONDITION. NO C/O PAIN. NO S/SX ACUTE DISTRESS. CALL LIGHT WITHIN REACH. WILL CONTINUE TO MONITOR.
[2019-09-15] MEDS: FAMOTIDINE 20 MG TAB PO SCH ×3 (06:32→16:05)
--- NOTE | 2019-09-15 07:17 | NUR ---
ENDORSED PATIENT TO AM SHIFT NURSE IN STABLE CONDITION FOR CONTINUITY OF CARE.
--- NOTE | 2019-09-15 07:20 | NUR ---
RECEIVED BEDSIDE SHIFT REPORT FROM CYBER SECURITY MANAGER NURSE FOR CONTINUATION OF CARE.
[2019-09-15 07:52] LABS: CARBON DIOXIDE 28.1 mmol/L (21-32); CHLORIDE 109 mmol/L (98-107); CREATININE 1.1 mg/dL (0.6-1.3); GLUCOSE 109 mg/dL (74-106); POTASSIUM 4.1 mmol/L (3.5-5.1); SODIUM SERUM 144 mmol/L (136-145); UREA NITROGEN, BLOOD 17 mg/dL (7-18)
[2019-09-15 08:00] VITALS: BP 143/71
[2019-09-15 08:09] LABS: BASOPHILS # (AUTO) 0.1 K/uL (0.00-0.22); BASOPHILS % (AUTO) 0.7 % (0.0-2.0); EOSINOPHILS # (AUTO) 0.6 K/uL (0-0.4); HEMATOCRIT 33.7 % (36-48); HEMOGLOBIN 11.1 g/dL (12.0-16.0); LYMPHOCYTES % (AUTO) 24.8 % (20.5-51.1); MEAN CORPUSCULAR HEMOGLOBIN 30 pg (27-31); MEAN CORPUSCULAR HGB CONC 33 g/dL (33-37); MEAN CORPUSCULAR VOLUME 89.7 fL (80-94); MONOCYTES # (AUTO) 0.5 K/uL (0.8-1.0); MONOCYTES % (AUTO) 5.7 % (1.7-9.3); NEUTROPHILS # (AUTO) 4.8 K/uL (1.8-7.7); NEUTROPHILS % (AUTO) 60.8 % (42.2-75.2); PLATELET COUNT (AUTO) 286 K/uL (140-450); RED BLOOD CELL COUNT(AUTO) 3.75 MIL/uL (4.20-5.40); RED CELL DISTRIBUTION WIDTH 15.7 % (11.6-13.7)
[2019-09-15 08:15] LABS: MAGNESIUM 1.9 mg/dL (1.8-2.4); PHOSPHORUS 3.4 mg/dL (2.5-4.9)
[2019-09-15] MEDS: LACTOBACILLUS RHAMNOSUS GG 1 EACH CAP PO SCH ×2 (09:00→09:05)
[2019-09-15] MEDS: CLOPIDOGREL 75 MG TAB PO SCH (09:04)
[2019-09-15] MEDS: OXYBUTYNIN 5 MG TAB PO SCH ×2 (09:04→20:52)
[2019-09-15] MEDS: FLUoxetine 10 MG CAP PO SCH (09:04)
[2019-09-15] MEDS: amLODIPine 5 MG TAB PO SCH (09:04)
[2019-09-15] MEDS: GABAPENTIN 300 MG CAP PO SCH ×3 (09:04→16:06)
[2019-09-15] MEDS: NACL 0.9% 1,000 ML IV SCH (09:31)
--- NOTE | 2019-09-15 09:50 | NUR ---
PATIENT IS RESTING IN BED, MEDICATIONS TOLERATED WELL, TOLERATING FULL LIQUID DIET WELL, NO BM AT THIS TIME. CALL LIGHT ON AND WITHIN REACH. WILL CONTINUE TO MONITOR.
--- NOTE | 2019-09-15 11:04 | NUR ---
CONCERNS ADDRESSED AT THIS TIME, PATIENT IS RESTING EYES CLOSED. BED IS IN LOW POSITION, CALL LIGHT ON AND WITHIN REACH. WILL CONTINUE TO MONITOR.
[2019-09-15] MEDS ORDERED: PSYLLIUM 12.2 GM/PKT PO SCH (11:30)
[2019-09-15 12:00] VITALS: BP 142/59
[2019-09-15] MEDS: METOCLOPRAMIDE 10 MG TAB PO SCH ×2 (12:05→16:06)
--- NOTE | 2019-09-15 13:46 | NUR ---
1 LARGE BOWEL MOVEMENT NOTED, DIARHEA CONSISTENCY, STOOL COLLECTED FOR LAB AND OCCULT TESTING. SPONGE BATH GIVEN, LINEN CHANGED, AND GOWN CHANGED. BED IS IN LOW POSITION, CALL LIGHT ON AND WITHIN REACH, WILL CONTINUE TO MONITOR.
--- NOTE | 2019-09-15 15:00 | NUR ---
PATIENT IS RESTING IN BED, NO SIGNS OF DISTRESS NOTED AT THIS TIME. CALL LIGHT ON AND WITHIN REACH WILL CONTINUE TO MONITOR.
[2019-09-15 16:00] VITALS: BP 133/57
--- NOTE | 2019-09-15 19:25 | NUR ---
BEDSIDE SHIFT REPORT GIVEN TO ANODIC TREATER NURSE FOR CONTINUATION OF CARE.
--- NOTE | 2019-09-15 19:27 | NUR ---
RECEIVED BEDSIDE REPORT FROM AM NURSE, PT AWAKE, AL O X 4. BREATHING EVEN AND UNLABORED ON RA SKIN INTACT, WARM AND DRY TO TOUCH. IV SITE ON RIGHT ARM 20G PATENT, INTACT AND ASYMPTOMATIC. PLACED ON FALL RISK PRECAUTION ALL SAFETY MEASUREMENT ARE MET. BED IN LOW POSITION, CALL LIGHT WITHIN REACH.
--- NOTE | 2019-09-15 19:28 | NUR ---
WAS INFORMED BY PREVIOUS SHIFT NURSE, C DIFF STOOL NO 1 COLLECTED EARLIER ( OUT OF 3)
[2019-09-15 20:00] VITALS: BP 123/59
[2019-09-15] MEDS: LITHIUM CARBONATE 300 MG TAB PO SCH (20:52)
[2019-09-16] VITALS: BP 133/60
[2019-09-16] MEDS: PIPERACILLIN/TAZOBACTAM 2.25 GM in DEXTROSE 5% 50 ML IV SCH ×5 (00:22→23:19)
[2019-09-16] MEDS: NACL 0.9% 1,000 ML IV SCH ×2 (02:12→19:00)
--- NOTE | 2019-09-16 02:50 | NUR ---
PT'S IVF ON THE R AC G 20 ALREADY LEAKING. CATHETER REMOVED, INTACT, NO SWELLING, NO BLEEDING.
--- NOTE | 2019-09-16 02:52 | NUR ---
BAR CODE OF NS CANNOT BE SCANNED, VERIFIED W/ BRITTANIE LARA
--- NOTE | 2019-09-16 03:00 | NUR ---
INSERTED IVF ON THE LEFT WRIST G 24, PATENT AND INTACT. NO SWELLING NOTED, FLUSHED
[2019-09-16 04:00] VITALS: BP 137/57
--- NOTE | 2019-09-16 06:06 | NUR ---
PT SLEEPING, BUT TURNED PATIENT AND CLEANED PT NO BM NOTED =, STILL WAITING 2 MORE C DIFF STOOL COLLECTION
--- NOTE | 2019-09-16 06:47 | NUR ---
PT ASLEEP BUT EASILY AROUSABLE, PT STILL W/ SLIGHT WEAKNESS NOTED,UNABLE TO GET UP ON BED. WILL ENDORSE TO NEXT SHIFT
--- NOTE | 2019-09-16 07:15 | NUR ---
RECEIVED REPORT FROM SPRING ASSEMBLER NURSE. PT IS AO X 3 WITH CONFUSION. PT IS ON FULL CODE, FROM [facility]. PT HAS IV G24 ON LEFT HAND W/ NS RUNNING AT 60 ML/HR. PT IS ON RA. PT IS BEDBOUND. SKIN INTACT. CALL LIGHT WITHIN PT'S REACH, BED ON LOW, SIDE RAILS UP. WILL CONTINUE TO MONITOR
[2019-09-16 07:55] LABS: BASOPHILS # (AUTO) 0.1 K/uL (0.00-0.22); BASOPHILS % (AUTO) 0.7 % (0.0-2.0); EOSINOPHILS # (AUTO) 0.7 K/uL (0-0.4); EOSINOPHILS % (AUTO) 8.8 % (0.0-4.0); HEMATOCRIT 35.4 % (36-48); HEMOGLOBIN 11.5 g/dL (12.0-16.0); LYMPHOCYTES # (AUTO) 2.3 K/uL (2.5-16.5); LYMPHOCYTES % (AUTO) 28.8 % (20.5-51.1); MEAN CORPUSCULAR HEMOGLOBIN 29 pg (27-31); MEAN CORPUSCULAR HGB CONC 33 g/dL (33-37); MEAN CORPUSCULAR VOLUME 89.8 fL (80-94); MONOCYTES # (AUTO) 0.4 K/uL (0.8-1.0); MONOCYTES % (AUTO) 4.6 % (1.7-9.3); NEUTROPHILS # (AUTO) 4.5 K/uL (1.8-7.7); NEUTROPHILS % (AUTO) 57.1 % (42.2-75.2); PLATELET COUNT (AUTO) 297 K/uL (140-450); RED BLOOD CELL COUNT(AUTO) 3.94 MIL/uL (4.20-5.40); WHITE BLOOD COUNT (AUTO) 7.9 K/uL (4.8-10.8)
[2019-09-16 08:00] VITALS: BP 143/72
[2019-09-16 08:11] LABS: ANION GAP 10.1 (8-16); CARBON DIOXIDE 28.2 mmol/L (21-32); CHLORIDE 108 mmol/L (98-107); CREATININE 1.2 mg/dL (0.6-1.3); GLUCOSE 102 mg/dL (74-106); POTASSIUM 4.3 mmol/L (3.5-5.1); SODIUM SERUM 142 mmol/L (136-145); UREA NITROGEN, BLOOD 11 mg/dL (7-18)
[2019-09-16 08:12] LABS: MAGNESIUM 1.8 mg/dL (1.8-2.4); PHOSPHORUS 3.4 mg/dL (2.5-4.9)
[2019-09-16] MEDS ORDERED: PSYLLIUM 12.2 GM/PKT PO SCH (09:00)
--- NOTE | 2019-09-16 09:45 | NUR ---
SCHEDULED MEDS GIVEN. PT TOLERATED WELL. WILL CONTINUE TO MONITOR
[2019-09-16] MEDS: LACTOBACILLUS RHAMNOSUS GG 1 EACH CAP PO SCH (10:26)
[2019-09-16] MEDS: METOCLOPRAMIDE 10 MG TAB PO SCH ×3 (10:26→17:04)
[2019-09-16] MEDS: CLOPIDOGREL 75 MG TAB PO SCH (10:27)
[2019-09-16] MEDS: GABAPENTIN 300 MG CAP PO SCH ×3 (10:28→17:05)
[2019-09-16] MEDS: amLODIPine 5 MG TAB PO SCH (10:28)
[2019-09-16] MEDS: OXYBUTYNIN 5 MG TAB PO SCH ×2 (10:29→20:39)
[2019-09-16] MEDS: FLUoxetine 10 MG CAP PO SCH (10:29)
[2019-09-16] MEDS: FAMOTIDINE 20 MG TAB PO SCH ×3 (10:34→17:04)
[2019-09-16 12:00] VITALS: BP 141/59
[2019-09-16 12:09] LABS: FOLIC ACID 5.2 ng/mL (>3.0)
--- NOTE | 2019-09-16 12:17 | NUR ---
SCHEDULED MEDS GIVEN. PT TOLERATED WELL. INSTRUCTED PT TO LET US KNOW IF SHE WANTS TO GO TO THE BATHROOM. BECAUSE HER STOOL SAMPLE WILL BE COLLECTED AND SENT TO LABORATORY. PT VERBALIZED UNDERSTANDING. SLASH TRIMMER INFORMED WELL. WILL CONTINUE TO MONITOR
--- NOTE | 2019-09-16 15:10 | NUR ---
DISCHARGE PLANNING 89 y/o female admitted from [facility] for abdominal pain and fever. Pt with hx of HTN, GERD, bipolar disorder and chronic osteoarthritis. Dr. Winters (GI) consulted and dx the pt with ischemic bowel disease, colitis and diverticulitis. C-Diff cultures pending and no need for colonoscopy at this time. Pt in IV Zosyn; BP 137/57, tempt 98, WBC 7.9, Hgb 11.5. DC plan back to [facility] once medically cleared. CARLI/KSENIA will continue following up as needed. Pema Serrano LCSW/KSENIA Addendum: 09/18/19 at 1409 by Maribell Pelletier CM RECEIVED AN ORDER FOR DC BACK TO [facility]. QUINTIN OF [facility] MADE AWARE AND REFERRAL SENT. WILL FOLLOW UP Addendum: 09/18/19 at 1420 by Maribell Pelletier CM CONTACTED PATIENT'S SON LETA SALGADO AT [phone] TO DISCUSS DC PLAN AND IS AGREEMENT. IM LETTER DISCUSSED WELL, ABLE TO VERBALIZE UNDERSTANDING. COPY PLACED IN THE CHART. Addendum: 09/18/19 at 1636 by Maribell Pelletier PER QUINTIN OF [facility], PATIENT WILL GO TO ROOM 42C UNDER DR. KAUFFMAN. AMAURI OF [facility] PROVIDED TRANSPORT AUTH [id number]. PER CELIA OF [facility] ENGINEER SOILS WILL BE AT 1700. PRIMARY RN KADEN MADE AWARE.
[2019-09-16 16:00] VITALS: BP 141/61
--- NOTE | 2019-09-16 17:11 | NUR ---
SCHEDULED MEDS GIVEN. PT TOLERATED WELL. FAMILY AT BEDSIDE. WILL CONTINUE TO MONITOR.
--- NOTE | 2019-09-16 19:10 | NUR ---
REPORT GIVEN TO BIOMED TECH NURSE FOR CONTINUITY OF CARE. PT IS STABLE. CALL LIGHT WITHIN PT'S REACH. SIDE RAILS UP, BED ON LOW.
--- NOTE | 2019-09-16 19:11 | NUR ---
REPORT RECEIVED FROM AM NURSE AT BEDSIDE. PT IN STABLE CONDITION. AAOX3-4. INTRODUCED SELF TO PT. BOARD UPDATED. NO COMPLAINTS OF PAIN. NO SOB. AFEBRILE. PT IS AMBULATORY WITH ASSIST. IV SITE L HAND 24G RUNNING NS@60ML/HR PATENT AND INTACT. SKIN WARM, DRY, AND INTACT WITH NO OPEN WOUNDS. BED LOCKED IN LOW POSITION. CALL PLEITEZ WITHIN REACH. SAFETY PRECAUTION IN PLACE. ALL NEEDS MET AT THIS TIME.
[2019-09-16 20:00] VITALS: BP 139/61
[2019-09-16] MEDS: LITHIUM CARBONATE 300 MG TAB PO SCH (20:39)
--- NOTE | 2019-09-16 20:39 | NUR ---
DITROPAN AND LITHIUM GIVEN PO. PT TOLERATED WELL.
--- NOTE | 2019-09-16 22:10 | NUR ---
PT SLEEPING COMFORTABLY BUT AROUSABLE. NO S/S OF DISTRESS NOTED. WILL CONTINUE TO MONITOR.
--- NOTE | 2019-09-16 23:19 | NUR ---
WENT IN TO [facility] ZOSYN BUT PT REMOVED THEIR IV. WILL START A NEW LINE.
--- NOTE | 2019-09-16 23:40 | NUR ---
NEW IV STARTED. L HAND 22G PATENT AND INTACT. PREVIOUS IV CANNULA INTACT. BETTY HUNG AND RUNNING.
[2019-09-17] VITALS: BP 147/63
--- NOTE | 2019-09-17 01:20 | NUR ---
PT SLEEPING COMFORTABLY BUT AROUSABLE. NO S/S OF DISTRESS NOTED. NO COMPLAINTS OF PAIN. NO SOB. AFEBRILE. WILL CONTINUE TO MONITOR.
--- NOTE | 2019-09-17 03:30 | NUR ---
PT SLEEPING COMFORTABLY BUT AROUSABLE. NO S/S OF DISTRESS NOTED. NO COMPLAINTS OF PAIN. NO SOB. AFEBRILE. WILL CONTINUE TO MONITOR.
[2019-09-17 04:00] VITALS: BP 131/46
[2019-09-17] MEDS: PIPERACILLIN/TAZOBACTAM 2.25 GM in DEXTROSE 5% 50 ML IV SCH ×4 (05:21→23:52)
--- NOTE | 2019-09-17 05:21 | NUR ---
BETTY HUNG AND RUNNING. PT TOLERATING WELL.
[2019-09-17] MEDS: METOCLOPRAMIDE 10 MG TAB PO SCH ×3 (06:49→16:42)
[2019-09-17] MEDS: FAMOTIDINE 20 MG TAB PO SCH ×3 (06:49→16:42)
--- NOTE | 2019-09-17 06:49 | NUR ---
PEPCID AND REGLAN GIVEN PO. PT TOLERATED WELL.
--- NOTE | 2019-09-17 07:05 | NUR ---
PT SLEEPING COMFORTABLY. PT IN STABLE CONDITION.
--- NOTE | 2019-09-17 07:15 | NUR ---
RECEIVED REPORT FROM HOSPICE/HOME HEALTH AIDE NURSE. PT IS SLEEPING, NO SIGNS OF DISTRESS. PT HAS IV ON LEFT HAND G22 WITH NS RUNNING AT 60ML/HR. CALL LIGHT WITHIN PT'S REACH. BED ON LOW, SIDE RAILS UP. WILL CONTINUE TO MONITOR
[2019-09-17 07:19] LABS: ANION GAP 9.1 (8-16); CARBON DIOXIDE 29.8 mmol/L (21-32); CHLORIDE 108 mmol/L (98-107); GLUCOSE 114 mg/dL (74-106); POTASSIUM 3.9 mmol/L (3.5-5.1); SODIUM SERUM 143 mmol/L (136-145); UREA NITROGEN, BLOOD 8 mg/dL (7-18)
[2019-09-17 07:20] LABS: BASOPHILS # (AUTO) 0.1 K/uL (0.00-0.22); BASOPHILS % (AUTO) 0.7 % (0.0-2.0); EOSINOPHILS # (AUTO) 0.7 K/uL (0-0.4); EOSINOPHILS % (AUTO) 8.1 % (0.0-4.0); HEMATOCRIT 35.7 % (36-48); HEMOGLOBIN 11.6 g/dL (12.0-16.0); LYMPHOCYTES # (AUTO) 1.7 K/uL (2.5-16.5); LYMPHOCYTES % (AUTO) 19.2 % (20.5-51.1); MEAN CORPUSCULAR HEMOGLOBIN 29 pg (27-31); MEAN CORPUSCULAR HGB CONC 33 g/dL (33-37); MEAN CORPUSCULAR VOLUME 89.4 fL (80-94); MONOCYTES # (AUTO) 0.4 K/uL (0.8-1.0); MONOCYTES % (AUTO) 4.1 % (1.7-9.3); NEUTROPHILS # (AUTO) 5.9 K/uL (1.8-7.7); NEUTROPHILS % (AUTO) 67.9 % (42.2-75.2); PLATELET COUNT (AUTO) 309 K/uL (140-450); RED CELL DISTRIBUTION WIDTH 15.5 % (11.6-13.7); WHITE BLOOD COUNT (AUTO) 8.7 K/uL (4.8-10.8)
[2019-09-17 07:26] LABS: MAGNESIUM 1.7 mg/dL (1.8-2.4); PHOSPHORUS 3.5 mg/dL (2.5-4.9)
[2019-09-17 08:00] VITALS: BP 148/50
[2019-09-17] MEDS: LACTOBACILLUS RHAMNOSUS GG 1 EACH CAP PO SCH (09:46)
[2019-09-17] MEDS: amLODIPine 5 MG TAB PO SCH (09:47)
[2019-09-17] MEDS: OXYBUTYNIN 5 MG TAB PO SCH ×2 (09:47→21:00)
[2019-09-17] MEDS: GABAPENTIN 300 MG CAP PO SCH ×3 (09:47→16:42)
[2019-09-17] MEDS: FLUoxetine 10 MG CAP PO SCH (09:48)
[2019-09-17] MEDS: CLOPIDOGREL 75 MG TAB PO SCH (09:49)
--- NOTE | 2019-09-17 09:51 | NUR ---
SCHEDULED MEDS GIVEN. PT TOLERATED WELL. WILL CONTINUE TO MONITOR
--- NOTE | 2019-09-17 10:32 | NUR ---
CRISTA PRINTED OUT TELE READING OF HR= 40, SB W/ PAC. CHECKED PT, PT IN BED RESTING, NO SIGNS OF DISTRESS. TRIED WAKING UP THE PT. SHE JUST OPENED HER EYES AND NODDED AND WENT BACK TO SLEEP. INFORMED DR. BOCANEGRA.
--- NOTE | 2019-09-17 10:45 | NUR ---
Late entry. Confirmed with RN that Rocephin IV completed at 2209
[2019-09-17] MEDS: NACL 0.9% 1,000 ML IV SCH ×2 (11:32→16:41)
[2019-09-17 12:00] VITALS: BP 141/58
--- NOTE | 2019-09-17 13:07 | NUR ---
SCHEDULED MEDS GIVEN. PT TOLERATED WELL. WILL CONTINUE TO MONITOR.
[2019-09-17 16:00] VITALS: BP 148/63
--- NOTE | 2019-09-17 16:53 | NUR ---
SCHEDULED MEDS GIVEN. PT TOLERATED WELL. WILL CONTINUE TO MONITOR
[2019-09-17] MEDS ORDERED: MAGNESIUM OXIDE 400 MG TAB PO SCH (17:00)
--- NOTE | 2019-09-17 19:05 | NUR ---
REPORT GIVEN TO ANIMATION CAMERA OPERATOR NURSE AT BEDSIDE FOR CONTINUITY OF CARE. PT IS SLEEPING. PT IS STABLE. CALL LIGHT WITHIN PT'S REACH. BED ON LOW, SIDE RAILS UP.
[2019-09-17 20:00] VITALS: BP 140/62
[2019-09-17] MEDS: LITHIUM CARBONATE 300 MG TAB PO SCH (21:00)
[2019-09-18] VITALS: BP 124/49
[2019-09-18] MEDS: PIPERACILLIN/TAZOBACTAM 2.25 GM in DEXTROSE 5% 50 ML IV SCH ×2 (05:44→12:44)
[2019-09-18] MEDS: FAMOTIDINE 20 MG TAB PO SCH ×3 (06:07→16:59)
[2019-09-18] MEDS: METOCLOPRAMIDE 10 MG TAB PO SCH ×3 (06:07→16:59)
[2019-09-18 06:10] LABS: ANION GAP 8.3 (8-16); CARBON DIOXIDE 30.5 mmol/L (21-32); CHLORIDE 108 mmol/L (98-107); CREATININE 1.1 mg/dL (0.6-1.3); GLUCOSE 108 mg/dL (74-106); POTASSIUM 3.8 mmol/L (3.5-5.1); SODIUM SERUM 143 mmol/L (136-145); UREA NITROGEN, BLOOD 10 mg/dL (7-18)
[2019-09-18 06:17] LABS: MAGNESIUM 1.8 mg/dL (1.8-2.4); PHOSPHORUS 4.4 mg/dL (2.5-4.9)
[2019-09-18 06:27] LABS: BASOPHILS # (AUTO) 0.1 K/uL (0.00-0.22); EOSINOPHILS # (AUTO) 0.9 K/uL (0-0.4); EOSINOPHILS % (AUTO) 10.1 % (0.0-4.0); HEMOGLOBIN 10.4 g/dL (12.0-16.0); LYMPHOCYTES # (AUTO) 2.1 K/uL (2.5-16.5); LYMPHOCYTES % (AUTO) 25.1 % (20.5-51.1); MEAN CORPUSCULAR HEMOGLOBIN 29 pg (27-31); MEAN CORPUSCULAR HGB CONC 32 g/dL (33-37); MEAN CORPUSCULAR VOLUME 90.1 fL (80-94); MONOCYTES # (AUTO) 0.3 K/uL (0.8-1.0); MONOCYTES % (AUTO) 3.7 % (1.7-9.3); NEUTROPHILS # (AUTO) 5.1 K/uL (1.8-7.7); NEUTROPHILS % (AUTO) 60.1 % (42.2-75.2); PLATELET COUNT (AUTO) 280 K/uL (140-450); RED BLOOD CELL COUNT(AUTO) 3.56 MIL/uL (4.20-5.40); RED CELL DISTRIBUTION WIDTH 15.6 % (11.6-13.7); WHITE BLOOD COUNT (AUTO) 8.5 K/uL (4.8-10.8)
--- NOTE | 2019-09-18 07:25 | NUR ---
RECEIVED REPORT FROM EXAMINING CHAIR ASSEMBLER NURSE. PATIENT LYING DOWN IN BED, NO DISTRESS NOTED. DENIES ANY PAIN. AAOX3, CALM, COOPERATIVE, SKIN COLOR APPROPRIATE TO ETHNICITY, WARM TO TOUCH. SKIN INTACT. IV SITE INTACT, PATENT, AND INFUSING IVF PER MD ORDERS. ON O2 2L/MIN VIA NC, RESPIRATIONS, EVEN, UNLABORED. REVIEWED PLAN OF CARE WITH PATIENT. PATIENT VERBALIZED UNDERSTANDING. SAFETY MEASURES IN PLACE, CALL LIGHT WITHIN REACH. WILL CONTINUE TO MONITOR.
[2019-09-18 08:00] VITALS: BP 135/66
[2019-09-18] MEDS: LACTOBACILLUS RHAMNOSUS GG 1 EACH CAP PO SCH (09:30)
[2019-09-18] MEDS: OXYBUTYNIN 5 MG TAB PO SCH (09:30)
[2019-09-18] MEDS: amLODIPine 5 MG TAB PO SCH (09:31)
[2019-09-18] MEDS: CLOPIDOGREL 75 MG TAB PO SCH (09:31)
[2019-09-18] MEDS: FLUoxetine 10 MG CAP PO SCH (09:31)
[2019-09-18] MEDS: GABAPENTIN 300 MG CAP PO SCH ×3 (09:31→16:59)
--- NOTE | 2019-09-18 09:50 | NUR ---
ASSISTED PATIENT TO BATHROOM AND BACK TO BED. SCHEDULED MEDICATIONS DUE GIVEN. WILL CONTINUE TO MONITOR.
[2019-09-18 12:00] VITALS: BP 153/78
--- NOTE | 2019-09-18 12:43 | NUR ---
09/18/19 RD INITIAL ASSESSMENT COMPLETED PLEASE REFER TO NUTRITION ASSESSMENT UNDER CARE ACTIVITY FOR ESTIMATED NUTRITIONAL NEEDS. 1. CONTINUE FULL LIQUID DIET TOLERATED 2. RECOMMEND ENSURE BID 3. IF/WHEN MEDICALLY APPROPRIATE CONSIDER ADVANCING DIET TO MECHANICAL SOFT CARDIAC WITH ENSURE BID 4. RD TO FOLLOW-UP 3-5 DAYS, MODERATE RISK CHRISTOPHER HYDE RD
[2019-09-18] MEDS: NACL 0.9% 1,000 ML IV SCH (12:44)
--- NOTE | 2019-09-18 12:48 | NUR ---
SCHEDULED MEDICATIONS DUE GIVEN. CONDITION UNCHANGED. WILL CONTINUE TO MONITOR.
[2019-09-18] MEDS ORDERED: ZOS2.25I IV (15:04)
[2019-09-18] MEDS ORDERED: LACT10CA PO (15:04)
--- NOTE | 2019-09-18 16:42 | NUR ---
CALLED [facility] AND GAVE REPORT TO BRITTANIE JACKSON. ANSWERED ALL OF HER QUESTIONS REGARDING TRANSFER AND PLAN OF CARE WITH IV ANTIBIOTICS FOR 6 MORE DAY FOR UTI. RENETTA VERBALIZED COMPLETE UNDERSTANDING AND AWAITING FOR PATIENT'S ARRIVAL AT AROUND 1700 BY [facility]. CALLED SON, LETA SALGADO AT [phone] AND LEFT VOICE MESSAGE REGARDING PATIENT'S TRANSFER BACK TO [facility] LATER TODAY. GAVE DISCHARGE INSTRUCTIONS TO PATIENT, UNABLE TO COMPREHEND. WILL CONTINUE TO MONITOR.
--- NOTE | 2019-09-18 17:08 | NUR ---
[facility] ON UNIT TO TAKE PATIENT TO [facility]. GAVE REPORT TO TRANSPORTERS. PATIENT TRANSFERRED AT THIS TIME TO [facility] IN STABLE CONDITION.
== END 2019-09-18 17:15 | DRG 682 ==
LOC: MED 16:53 → MTU 09-14 00:57
PROVIDERS: ADMIT General Practice; ATTEND General Practice
DX: N17.0 Acute kidney failure with tubular necrosis (principal); G93.41 Metabolic encephalopathy; N39.0 Urinary tract infection, site not specified; J98.11 Atelectasis; B96.20 Unspecified Escherichia coli [E. coli] as the cause of diseases classified elsewhere; E78.5 Hyperlipidemia, unspecified; F31.9 Bipolar disorder, unspecified; I10 Essential (primary) hypertension; K21.9 Gastro-esophageal reflux disease without esophagitis; M19.90 Unspecified osteoarthritis, unspecified site; I25.10 Atherosclerotic heart disease of native coronary artery without angina pectoris; J45.909 Unspecified asthma, uncomplicated; D64.9 Anemia, unspecified; N32.81 Overactive bladder; K52.9 Noninfective gastroenteritis and colitis, unspecified; Z90.49 Acquired absence of other specified parts of digestive tract; Z90.710 Acquired absence of both cervix and uterus; Z79.899 Other long term (current) drug therapy
CPT/HCPCS: 36415; 71045; 74018; 80048; 80053; 80178; 81001; 82150; 82272; 82607; 82728; 82746; 83036; 83540; 83605; 83690; 83735; 83880; 84100; 84134; 84439; 84443; 84484; 85025; 85045; 85610; 85730; 87040; 87070; 87081; 87086; 87186; 93005; 96365; 99285; J0696; J2543; J7030; J7060; J8597; Q0163

== ENCOUNTER 2020-08-07 00:11 | Inpatient (IN) | payer OTHER, SELFPAY ==
[~2020-08-07] VITALS: Ht 152.4 cm; Wt 72.6 kg
[2020-08-07 00:11] VITALS: BP 152/51
[~2020-08-07 00:11] MED LIST changes: -BISA10SU1 RC; -DOCU-2 PO; -MAGN400S60 PO; -NITR0.4S14 SL; +NITR0.4T2 SL; +OLOP2.5D7 OP; -OLOP2.5S OP; -ROC1PM IV; +ZOS2.25I IV
[2020-08-07] MEDS ORDERED: OSC500 PO (00:38)
[2020-08-07] MEDS ORDERED: METR500T1 IV (00:38)
[2020-08-07] MEDS ORDERED: SIME80TA22 PO (00:38)
[2020-08-07] MEDS ORDERED: DOCU-2 PO (00:38)
[2020-08-07 00:40] LABS: BASOPHILS % (AUTO) 0.3 % (0.0-2.0); EOSINOPHILS # (AUTO) 0.1 K/uL (0-0.4); EOSINOPHILS % (AUTO) 1.3 % (0.0-4.0); HEMATOCRIT 39.5 % (36-48); HEMOGLOBIN 12.8 g/dL (12.0-16.0); LYMPHOCYTES # (AUTO) 1.4 K/uL (2.5-16.5); LYMPHOCYTES % (AUTO) 14.1 % (20.5-51.1); MEAN CORPUSCULAR HEMOGLOBIN 29 pg (27-31); MEAN CORPUSCULAR HGB CONC 32 g/dL (33-37); MEAN CORPUSCULAR VOLUME 90.2 fL (80-94); MONOCYTES # (AUTO) 0.6 K/uL (0.8-1.0); MONOCYTES % (AUTO) 5.8 % (1.7-9.3); NEUTROPHILS # (AUTO) 7.9 K/uL (1.8-7.7); NEUTROPHILS % (AUTO) 78.5 % (42.2-75.2); PLATELET COUNT (AUTO) 192 K/uL (140-450); RED BLOOD CELL COUNT(AUTO) 4.37 MIL/uL (4.20-5.40); RED CELL DISTRIBUTION WIDTH 15.4 % (11.6-13.7); WHITE BLOOD COUNT (AUTO) 10.1 K/uL (4.8-10.8)
[2020-08-07] MEDS ORDERED: cefTRIAXone 1,000 MG VIAL ONE (00:53)
[2020-08-07 01:08] LABS: ALBUMIN 3.4 g/dL (3.4-5.0); ANION GAP 9.8 (8-16); ASPARTATE AMINOTRANSFERASE 24 U/L (15-37); CARBON DIOXIDE 26.2 mmol/L (21-32); CHLORIDE 113 mmol/L (98-107); CREATININE 1.7 mg/dL (0.6-1.3); GLUCOSE 101 mg/dL (74-106); SODIUM SERUM 144 mmol/L (136-145); TOTAL BILIRUBIN 0.4 mg/dL (0.0-1.0)
[2020-08-07 01:11] LABS: SALICYLATE < 2.8 mg/dL (2.8-20.0)
[2020-08-07 01:13] LABS: UREA NITROGEN, BLOOD 64 mg/dL (7-18)
[2020-08-07 01:15] LABS: APPEARANCE,URINE CLOUDY (CLEAR); BILIRUBIN,URINE NEGATIVE (NEGATIVE); BLOOD, URINE TRACE-I (NEGATIVE); COLOR,URINE YELLOW (YELLOW); LEUKOCYTE ESTERASE ,URINE 1+ (NEGATIVE); NITRITE, URINE POSITIVE (NEGATIVE); UGLUCOSE NEGATIVE (NEGATIVE)
[2020-08-07 01:24] LABS: RBC,URINE 0-5 /HPF (0-5); WBC,URINE 20-60 /HPF (0-5)
[2020-08-07 01:29] LABS: BARBITURATE, URINE NEGATIVE ng/ml (NEG <=200); BENZODIAZEPINE, URINE NEGATIVE ng/mL (NEG <=200); CANNABINOID, URINE NEGATIVE ng/mL (NEG <=50); COCAINE, URINE NEGATIVE ng/mL (NEG <=300); OPIATE, URINE NEGATIVE ng/mL (NEG <=2000); PHENCYCLIDINE SCREEN,URINE NEGATIVE ng/mL (NEG <=25)
[2020-08-07 01:38] LABS: ACETAMINOPHEN < 0.5 ug/ml (10-30)
[2020-08-07] MEDS ORDERED: NACL 0.9% 1,000 ML IV SCH ×2 (01:50→12:45)
[2020-08-07 04:00] VITALS: BP 160/63
[2020-08-07 08:00] VITALS: BP 160/53
[2020-08-07] MEDS ORDERED: ONDANSETRON 4 MG/2 ML VIAL IM/IVP PRN (08:35)
[2020-08-07] MEDS ORDERED: DOCUSATE SODIUM 100 MG GELCAP PO PRN (08:35)
[2020-08-07] MEDS ORDERED: HYDROcodone/APAP 7.5/325 MG 1 TAB PO PRN (08:35)
[2020-08-07] MEDS ORDERED: ZOLPIDEM 5 MG TAB PO PRN (08:35)
[2020-08-07] MEDS ORDERED: POTASSIUM CHLORIDE 40 MEQ, LIDOCAINE MPF 1% 25 MG in NACL 0.9% 250 ML IV PRN (08:35)
[2020-08-07] MEDS ORDERED: guaiFENesin DM 200/20 MG-10 ML 10 ML UDC PO PRN (08:35)
[2020-08-07] MEDS ORDERED: ACETAMINOPHEN 325 MG TAB PO PRN (08:35)
[2020-08-07 09:00] LABS: PROTHROMBIN TIME 9.6 secs (10.8-13.4)
[2020-08-07] MEDS: PANTOPRAZOLE 40 MG TABEC PO SCH (09:00)
[2020-08-07] MEDS: GABAPENTIN 300 MG CAP PO SCH ×3 (09:00→17:00)
[2020-08-07] MEDS: CLOPIDOGREL 75 MG TAB PO SCH (09:00)
[2020-08-07] MEDS: OXYBUTYNIN 5 MG TAB PO SCH ×2 (09:00→20:14)
[2020-08-07] MEDS: amLODIPine 5 MG TAB PO SCH (09:00)
[2020-08-07] MEDS: FLUoxetine 10 MG CAP PO SCH (09:00)
[2020-08-07 09:06] LABS: CHOL/HDL RATIO 2.5 (1-4.5); FREE T4 (FREE THYROXINE) 1.23 ng/dL (0.76-1.46); MAGNESIUM 3.1 mg/dL (1.8-2.4); PHOSPHORUS 3.6 mg/dL (2.5-4.9); THYROID STIMULATING HORMONE 3.4 uIU/mL (0.34-3.74)
[2020-08-07 12:00] VITALS: BP 168/61
[2020-08-07] MEDS: DEXTROSE 5% 1,000 ML IV SCH (13:55)
[2020-08-07 14:08] LABS: URINE TOTAL PROTEIN 251.2 mg/dL (0-12)
[2020-08-07 16:00] VITALS: BP 173/64
[2020-08-07 20:00] VITALS: BP 155/72
[2020-08-07] MEDS: LITHIUM CARBONATE 300 MG TAB PO SCH (20:15)
[2020-08-07] MEDS: OLANZapine 5 MG TAB PO SCH (20:15)
[2020-08-08] VITALS: BP 171/74
[2020-08-08] MEDS ORDERED: LABETALOL 100 MG/20 ML VIAL IV PRN (00:15)
[2020-08-08] MEDS ORDERED: hydrALAZINE 20 MG/ML VIAL IVP PRN (00:15)
[2020-08-08] MEDS: DEXTROSE 5% 1,000 ML IV SCH ×3 (01:37→20:20)
[2020-08-08 04:00] VITALS: BP 156/68
[2020-08-08 07:00] LABS: BASOPHILS % (AUTO) 0.2 % (0.0-2.0); EOSINOPHILS # (AUTO) 0.2 K/uL (0-0.4); EOSINOPHILS % (AUTO) 1.6 % (0.0-4.0); HEMATOCRIT 42.1 % (36-48); HEMOGLOBIN 13.7 g/dL (12.0-16.0); LYMPHOCYTES # (AUTO) 1.4 K/uL (2.5-16.5); LYMPHOCYTES % (AUTO) 12.2 % (20.5-51.1); MEAN CORPUSCULAR HEMOGLOBIN 30 pg (27-31); MEAN CORPUSCULAR HGB CONC 33 g/dL (33-37); MEAN CORPUSCULAR VOLUME 91.4 fL (80-94); MONOCYTES # (AUTO) 0.5 K/uL (0.8-1.0); MONOCYTES % (AUTO) 4.7 % (1.7-9.3); NEUTROPHILS # (AUTO) 9.3 K/uL (1.8-7.7); NEUTROPHILS % (AUTO) 81.3 % (42.2-75.2); PLATELET COUNT (AUTO) 186 K/uL (140-450); RED BLOOD CELL COUNT(AUTO) 4.61 MIL/uL (4.20-5.40); RED CELL DISTRIBUTION WIDTH 16.2 % (11.6-13.7); WHITE BLOOD COUNT (AUTO) 11.4 K/uL (4.8-10.8)
[2020-08-08 07:11] LABS: ANION GAP 11.4 (8-16); CARBON DIOXIDE 20.8 mmol/L (21-32); CHLORIDE 113 mmol/L (98-107); CREATININE 1.4 mg/dL (0.6-1.3); GLUCOSE 116 mg/dL (74-106); POTASSIUM 5.2 mmol/L (3.5-5.1); SODIUM SERUM 140 mmol/L (136-145); UREA NITROGEN, BLOOD 56 mg/dL (7-18)
[2020-08-08 08:00] VITALS: BP 174/73
[2020-08-08 08:08] LABS: T4 (THYROXINE) 6.9 ug/dL (4.5-12.0)
[2020-08-08] MEDS: OXYBUTYNIN 5 MG TAB PO SCH ×2 (09:00→20:19)
[2020-08-08] MEDS: PANTOPRAZOLE 40 MG TABEC PO SCH (09:00)
[2020-08-08] MEDS: GABAPENTIN 300 MG CAP PO SCH ×3 (09:00→16:32)
[2020-08-08] MEDS: FLUoxetine 10 MG CAP PO SCH (09:00)
[2020-08-08] MEDS: amLODIPine 5 MG TAB PO SCH (09:00)
[2020-08-08] MEDS: CLOPIDOGREL 75 MG TAB PO SCH (09:00)
[2020-08-08] MEDS ORDERED: METOPROLOL 25 MG TAB PO SCH (10:45)
[2020-08-08 12:00] VITALS: BP 143/56
[2020-08-08] MEDS ORDERED: CRUSHER, PILL MC ONE (13:23)
[2020-08-08 16:00] VITALS: BP 148/61
[2020-08-08] MEDS ORDERED: SODIUM ZIRCONIUM CYCLOSILICATE 10 GM POWD.PACK PO ONE (16:50)
[2020-08-08] MEDS: CALCIUM CARBONATE 500 MG TAB PO SCH (17:44)
[2020-08-08] MEDS: SIMETHICONE 80 MG TAB.CHEW PO SCH (17:45)
[2020-08-08 20:00] VITALS: BP 149/58
[2020-08-08] MEDS: OLANZapine 5 MG TAB PO SCH (20:19)
[2020-08-08] MEDS: LITHIUM CARBONATE 300 MG TAB PO SCH (20:20)
[2020-08-08] MEDS ORDERED: DOCUSATE SODIUM 100 MG GELCAP PO SCH (21:00)
[2020-08-09] VITALS (15 sets, daily range): BP systolic 76–153; BP diastolic 26–59
[2020-08-09] MEDS: amLODIPine 5 MG TAB PO SCH ×2 (09:00→09:35)
[2020-08-09] MEDS ORDERED: FAMOTIDINE 20 MG TAB PO SCH (09:00)
[2020-08-09] MEDS ORDERED: OLOPATADINE HCL OP SCH (09:00)
[2020-08-09 09:20] LABS: BASOPHILS % (AUTO) 0.1 % (0.0-2.0); EOSINOPHILS # (AUTO) 0.5 K/uL (0-0.4); EOSINOPHILS % (AUTO) 3.8 % (0.0-4.0); HEMATOCRIT 41.2 % (36-48); HEMOGLOBIN 13.2 g/dL (12.0-16.0); LYMPHOCYTES # (AUTO) 1.9 K/uL (2.5-16.5); MEAN CORPUSCULAR HEMOGLOBIN 29 pg (27-31); MEAN CORPUSCULAR HGB CONC 32 g/dL (33-37); MEAN CORPUSCULAR VOLUME 90.8 fL (80-94); MONOCYTES # (AUTO) 0.7 K/uL (0.8-1.0); MONOCYTES % (AUTO) 5.2 % (1.7-9.3); NEUTROPHILS # (AUTO) 9.7 K/uL (1.8-7.7); NEUTROPHILS % (AUTO) 75.9 % (42.2-75.2); PLATELET COUNT (AUTO) 167 K/uL (140-450); RED BLOOD CELL COUNT(AUTO) 4.54 MIL/uL (4.20-5.40); RED CELL DISTRIBUTION WIDTH 15.9 % (11.6-13.7); WHITE BLOOD COUNT (AUTO) 12.7 K/uL (4.8-10.8)
[2020-08-09] MEDS: DOCUSATE 100 MG/10 ML UDC GT SCH ×2 (09:33→20:49)
[2020-08-09] MEDS: LACTOBACILLUS RHAMNOSUS GG 1 EACH CAP PO SCH (09:34)
[2020-08-09] MEDS: GABAPENTIN 300 MG CAP PO SCH ×3 (09:34→17:45)
[2020-08-09] MEDS: OXYBUTYNIN 5 MG TAB PO SCH ×2 (09:34→20:50)
[2020-08-09] MEDS: SIMETHICONE 80 MG TAB.CHEW PO SCH ×3 (09:37→17:45)
[2020-08-09] MEDS: FLUoxetine 10 MG CAP PO SCH (09:37)
[2020-08-09] MEDS: PANTOPRAZOLE 40 MG TABEC PO SCH (09:37)
[2020-08-09] MEDS: CLOPIDOGREL 75 MG TAB PO SCH (09:38)
[2020-08-09] MEDS: CALCIUM CARBONATE 500 MG TAB PO SCH ×3 (09:38→17:45)
[2020-08-09 10:18] LABS: ANION GAP 12.3 (8-16); CARBON DIOXIDE 21.8 mmol/L (21-32); CHLORIDE 106 mmol/L (98-107); CREATININE 1.5 mg/dL (0.6-1.3); GLUCOSE 94 mg/dL (74-106); POTASSIUM 4.1 mmol/L (3.5-5.1); SODIUM SERUM 136 mmol/L (136-145); UREA NITROGEN, BLOOD 55 mg/dL (7-18)
[2020-08-09] MEDS ORDERED: NACL 0.9% 1,000 ML IV ONE (12:35)
[2020-08-09] MEDS: DEXTROSE 5% 1,000 ML IV SCH (14:28)
[2020-08-09] MEDS ORDERED: NOREPINEPHRINE 4 MG/4 ML VIAL IV ONE (15:24)
[2020-08-09] MEDS: NOREPINEPHRINE 4 MG in DEXTROSE 5% 250 ML IV PRN (15:25)
[2020-08-09] MEDS ORDERED: DOPPLER MC ONE (15:28)
[2020-08-09] MEDS ORDERED: VANCOMYCIN PER PHARMACY MC PRN (15:40)
[2020-08-09] MEDS ORDERED: MIDAZOLAM MDV 50 MG in NACL 0.9% 40 ML IV PRN (16:30)
[2020-08-09] MEDS ORDERED: fentaNYL citrate 1 MG in NACL 0.9% 80 ML IV PRN (17:00)
[2020-08-09] MEDS ORDERED: VANCOMYCIN 1,000 MG in DEXTROSE 5% 250 ML IV SCH (17:00)
[2020-08-09] MEDS ORDERED: VANCOMYCIN 1,000 MG VIAL ONE (17:39)
[2020-08-09] MEDS: NACL 0.9% 1,000 ML IV SCH (17:46)
[2020-08-09] MEDS ORDERED: SODIUM BICARBONATE 8.4% PFS 50 MEQ/50 ML SYR IVP ONE ×2 (18:35→20:04)
[2020-08-09] MEDS: DOPamine 400 MG/D5W PREMIX 250 ML IV PRN (19:15)
[2020-08-09] MEDS: OLANZapine 5 MG TAB PO SCH (20:50)
[2020-08-09] MEDS ORDERED: NACL 0.9% IV SCH (21:00)
[2020-08-09] MEDS ORDERED: MEROPENEM IV SCH (21:00)
[2020-08-09] MEDS ORDERED: PIPERACILLIN/TAZOBACTAM 2.25 GM in DEXTROSE 5% 50 ML IV SCH (21:00)
[2020-08-09] MEDS ORDERED: MEROPENEM 500 MG VIAL IV ONE (21:19)
[2020-08-09] MEDS: LITHIUM CARBONATE 300 MG TAB PO SCH (21:30)
[2020-08-10] VITALS (31 sets, daily range): BP systolic 121–163; BP diastolic 28–58
[2020-08-10] MEDS: DOPamine 400 MG/D5W PREMIX 250 ML IV PRN (05:32)
[2020-08-10] MEDS: MEROPENEM 500 MG in NACL 0.9% 50 ML IV SCH ×3 (05:43→21:00)
[2020-08-10 06:46] LABS: BASOPHILS % (AUTO) 0.2 % (0.0-2.0); EOSINOPHILS # (AUTO) 0.3 K/uL (0-0.4); EOSINOPHILS % (AUTO) 2.9 % (0.0-4.0); HEMATOCRIT 32.1 % (36-48); HEMOGLOBIN 10.5 g/dL (12.0-16.0); LYMPHOCYTES # (AUTO) 1.1 K/uL (2.5-16.5); LYMPHOCYTES % (AUTO) 9.9 % (20.5-51.1); MEAN CORPUSCULAR HEMOGLOBIN 29 pg (27-31); MEAN CORPUSCULAR HGB CONC 33 g/dL (33-37); MEAN CORPUSCULAR VOLUME 89.6 fL (80-94); MONOCYTES # (AUTO) 0.7 K/uL (0.8-1.0); NEUTROPHILS # (AUTO) 9.2 K/uL (1.8-7.7); PLATELET COUNT (AUTO) 156 K/uL (140-450); RED BLOOD CELL COUNT(AUTO) 3.59 MIL/uL (4.20-5.40); RED CELL DISTRIBUTION WIDTH 15.2 % (11.6-13.7); WHITE BLOOD COUNT (AUTO) 11.4 K/uL (4.8-10.8)
[2020-08-10 07:49] LABS: ANION GAP 14.5 (8-16); CARBON DIOXIDE 19.2 mmol/L (21-32); CHLORIDE 106 mmol/L (98-107); CREATININE 1.5 mg/dL (0.6-1.3); GLUCOSE 117 mg/dL (74-106); POTASSIUM 3.7 mmol/L (3.5-5.1); SODIUM SERUM 136 mmol/L (136-145)
[2020-08-10] MEDS: NACL 0.9% 1,000 ML IV SCH ×3 (08:27→21:00)
[2020-08-10] MEDS: DOCUSATE 100 MG/10 ML UDC GT SCH ×2 (09:00→21:00)
[2020-08-10 09:37] LABS: UREA NITROGEN, BLOOD 50 mg/dL (7-18)
[2020-08-10] MEDS: NOREPINEPHRINE 4 MG in DEXTROSE 5% 250 ML IV PRN (09:47)
[2020-08-10] MEDS: LACTOBACILLUS RHAMNOSUS GG 1 EACH CAP PO SCH (09:48)
[2020-08-10] MEDS: FAMOTIDINE 20 MG/2 ML VIAL IV SCH (09:48)
[2020-08-10] MEDS: FLUoxetine 10 MG CAP PO SCH (09:49)
[2020-08-10] MEDS: CLOPIDOGREL 75 MG TAB PO SCH (09:49)
[2020-08-10] MEDS: amLODIPine 5 MG TAB PO SCH (09:49)
[2020-08-10] MEDS: SIMETHICONE 80 MG TAB.CHEW PO SCH ×3 (09:49→17:45)
[2020-08-10] MEDS: GABAPENTIN 300 MG CAP PO SCH ×3 (09:49→17:46)
[2020-08-10] MEDS: CALCIUM CARBONATE 500 MG TAB PO SCH ×3 (09:49→17:46)
[2020-08-10] MEDS: OXYBUTYNIN 5 MG TAB PO SCH ×2 (09:49→21:00)
[2020-08-10] MEDS: LITHIUM CARBONATE 300 MG TAB PO SCH (21:00)
[2020-08-10] MEDS: OLANZapine 5 MG TAB PO SCH (21:00)
[2020-08-10] MEDS ORDERED: MEROPENEM 500 MG VIAL IV ONE (21:58)
[2020-08-11] VITALS (29 sets, daily range): BP systolic 114–146; BP diastolic 33–62
[2020-08-11] MEDS: MEROPENEM 500 MG in NACL 0.9% 50 ML IV SCH ×3 (05:00→21:00)
[2020-08-11 06:22] LABS: BASOPHILS % (AUTO) 0.2 % (0.0-2.0); EOSINOPHILS # (AUTO) 0.4 K/uL (0-0.4); EOSINOPHILS % (AUTO) 3.1 % (0.0-4.0); HEMOGLOBIN 11.8 g/dL (12.0-16.0); LYMPHOCYTES # (AUTO) 1.5 K/uL (2.5-16.5); LYMPHOCYTES % (AUTO) 13.1 % (20.5-51.1); MEAN CORPUSCULAR HEMOGLOBIN 29 pg (27-31); MEAN CORPUSCULAR HGB CONC 33 g/dL (33-37); MEAN CORPUSCULAR VOLUME 89.7 fL (80-94); MONOCYTES # (AUTO) 0.5 K/uL (0.8-1.0); MONOCYTES % (AUTO) 4.7 % (1.7-9.3); NEUTROPHILS % (AUTO) 78.9 % (42.2-75.2); PLATELET COUNT (AUTO) 166 K/uL (140-450); RED BLOOD CELL COUNT(AUTO) 4.01 MIL/uL (4.20-5.40); RED CELL DISTRIBUTION WIDTH 15.3 % (11.6-13.7); WHITE BLOOD COUNT (AUTO) 11.4 K/uL (4.8-10.8)
[2020-08-11 06:23] LABS: ANION GAP 8.9 (8-16); CARBON DIOXIDE 21.5 mmol/L (21-32); CHLORIDE 110 mmol/L (98-107); CREATININE 1.6 mg/dL (0.6-1.3); GLUCOSE 105 mg/dL (74-106); POTASSIUM 3.4 mmol/L (3.5-5.1); SODIUM SERUM 137 mmol/L (136-145); UREA NITROGEN, BLOOD 46 mg/dL (7-18)
[2020-08-11 06:25] LABS: MAGNESIUM 2.1 mg/dL (1.8-2.4); PHOSPHORUS 3.2 mg/dL (2.5-4.9)
[2020-08-11] MEDS: DOPamine 400 MG/D5W PREMIX 250 ML IV PRN ×3 (07:22→23:21)
[2020-08-11] MEDS: amLODIPine 5 MG TAB PO SCH (09:00)
[2020-08-11] MEDS: DOCUSATE 100 MG/10 ML UDC GT SCH ×3 (09:30→21:00)
[2020-08-11] MEDS: CLOPIDOGREL 75 MG TAB PO SCH (09:39)
[2020-08-11] MEDS: GABAPENTIN 300 MG CAP PO SCH ×3 (09:39→17:12)
[2020-08-11] MEDS: SIMETHICONE 80 MG TAB.CHEW PO SCH ×4 (09:39→17:12)
[2020-08-11] MEDS: OXYBUTYNIN 5 MG TAB PO SCH ×2 (09:40→21:00)
[2020-08-11] MEDS: LACTOBACILLUS RHAMNOSUS GG 1 EACH CAP PO SCH (09:40)
[2020-08-11] MEDS: CALCIUM CARBONATE 500 MG TAB PO SCH ×3 (09:40→17:12)
[2020-08-11] MEDS: FLUoxetine 10 MG CAP PO SCH (09:44)
[2020-08-11] MEDS: NACL 0.9% 1,000 ML IV SCH (11:18)
[2020-08-11] MEDS ORDERED: MEROPENEM 500 MG VIAL IV ONE (20:46)
[2020-08-11] MEDS: OLANZapine 5 MG TAB PO SCH (21:00)
[2020-08-11] MEDS: LITHIUM CARBONATE 300 MG TAB PO SCH (21:00)
[2020-08-12] VITALS (31 sets, daily range): BP systolic 103–144; BP diastolic 35–54
[2020-08-12] MEDS: NACL 0.9% 1,000 ML IV SCH ×3 (01:36→23:58)
[2020-08-12] MEDS: MEROPENEM 500 MG in NACL 0.9% 50 ML IV SCH ×3 (04:46→21:39)
[2020-08-12 06:18] LABS: BASOPHILS % (AUTO) 0.1 % (0.0-2.0); EOSINOPHILS # (AUTO) 0.5 K/uL (0-0.4); EOSINOPHILS % (AUTO) 3.7 % (0.0-4.0); HEMATOCRIT 31.1 % (36-48); HEMOGLOBIN 10.4 g/dL (12.0-16.0); LYMPHOCYTES # (AUTO) 1.2 K/uL (2.5-16.5); MEAN CORPUSCULAR HEMOGLOBIN 30 pg (27-31); MEAN CORPUSCULAR HGB CONC 33 g/dL (33-37); MEAN CORPUSCULAR VOLUME 88.8 fL (80-94); MONOCYTES # (AUTO) 0.7 K/uL (0.8-1.0); MONOCYTES % (AUTO) 5.9 % (1.7-9.3); NEUTROPHILS % (AUTO) 80.3 % (42.2-75.2); PLATELET COUNT (AUTO) 154 K/uL (140-450); RED CELL DISTRIBUTION WIDTH 15.6 % (11.6-13.7); WHITE BLOOD COUNT (AUTO) 12.5 K/uL (4.8-10.8)
[2020-08-12 06:26] LABS: ANION GAP 8.8 (8-16); CARBON DIOXIDE 22.1 mmol/L (21-32); CHLORIDE 111 mmol/L (98-107); CREATININE 1.4 mg/dL (0.6-1.3); GLUCOSE 98 mg/dL (74-106); POTASSIUM 3.9 mmol/L (3.5-5.1); SODIUM SERUM 138 mmol/L (136-145); UREA NITROGEN, BLOOD 47 mg/dL (7-18)
[2020-08-12 06:44] LABS: MAGNESIUM 2.2 mg/dL (1.8-2.4); PHOSPHORUS 2.6 mg/dL (2.5-4.9)
[2020-08-12] MEDS: SIMETHICONE 80 MG TAB.CHEW PO SCH ×3 (09:00→17:43)
[2020-08-12] MEDS: GABAPENTIN 300 MG CAP PO SCH ×3 (09:00→17:43)
[2020-08-12] MEDS: FLUoxetine 10 MG CAP PO SCH (09:00)
[2020-08-12] MEDS: FAMOTIDINE 20 MG/2 ML VIAL IV SCH (09:00)
[2020-08-12] MEDS: LACTOBACILLUS RHAMNOSUS GG 1 EACH CAP PO SCH (09:00)
[2020-08-12] MEDS: OXYBUTYNIN 5 MG TAB PO SCH ×2 (09:00→21:39)
[2020-08-12] MEDS: CALCIUM CARBONATE 500 MG TAB PO SCH ×3 (09:00→17:43)
[2020-08-12] MEDS: DOCUSATE 100 MG/10 ML UDC GT SCH ×3 (09:00→21:39)
[2020-08-12] MEDS: CLOPIDOGREL 75 MG TAB PO SCH (09:00)
[2020-08-12] MEDS: amLODIPine 5 MG TAB PO SCH (09:00)
[2020-08-12] MEDS: DOPamine 400 MG/D5W PREMIX 250 ML IV PRN (13:00)
[2020-08-12] MEDS: OLANZapine 5 MG TAB PO SCH (21:39)
[2020-08-12] MEDS: LITHIUM CARBONATE 300 MG TAB PO SCH (21:39)
[2020-08-13] VITALS (32 sets, daily range): BP systolic 94–150; BP diastolic 33–57
[2020-08-13] MEDS: MEROPENEM 500 MG in NACL 0.9% 50 ML IV SCH ×3 (04:21→21:50)
[2020-08-13 06:17] LABS: BASOPHILS % (AUTO) 0.2 % (0.0-2.0); EOSINOPHILS # (AUTO) 0.4 K/uL (0-0.4); EOSINOPHILS % (AUTO) 3.9 % (0.0-4.0); HEMATOCRIT 27.7 % (36-48); HEMOGLOBIN 9.2 g/dL (12.0-16.0); LYMPHOCYTES # (AUTO) 1.3 K/uL (2.5-16.5); LYMPHOCYTES % (AUTO) 12.5 % (20.5-51.1); MEAN CORPUSCULAR HEMOGLOBIN 30 pg (27-31); MEAN CORPUSCULAR HGB CONC 33 g/dL (33-37); MEAN CORPUSCULAR VOLUME 89.2 fL (80-94); MONOCYTES # (AUTO) 0.7 K/uL (0.8-1.0); MONOCYTES % (AUTO) 6.7 % (1.7-9.3); NEUTROPHILS # (AUTO) 7.7 K/uL (1.8-7.7); NEUTROPHILS % (AUTO) 76.7 % (42.2-75.2); PLATELET COUNT (AUTO) 159 K/uL (140-450); RED BLOOD CELL COUNT(AUTO) 3.11 MIL/uL (4.20-5.40); RED CELL DISTRIBUTION WIDTH 15.6 % (11.6-13.7)
[2020-08-13 06:30] LABS: ANION GAP 13.4 (8-16); CARBON DIOXIDE 18.7 mmol/L (21-32); CHLORIDE 112 mmol/L (98-107); CREATININE 1.4 mg/dL (0.6-1.3); GLUCOSE 92 mg/dL (74-106); POTASSIUM 4.1 mmol/L (3.5-5.1); SODIUM SERUM 140 mmol/L (136-145)
[2020-08-13 06:33] LABS: MAGNESIUM 2.2 mg/dL (1.8-2.4); PHOSPHORUS 2.9 mg/dL (2.5-4.9)
[2020-08-13 07:18] LABS: UREA NITROGEN, BLOOD 52 mg/dL (7-18)
[2020-08-13] MEDS: DOCUSATE 100 MG/10 ML UDC GT SCH ×2 (09:00→21:50)
[2020-08-13] MEDS: LACTOBACILLUS RHAMNOSUS GG 1 EACH CAP PO SCH (09:20)
[2020-08-13] MEDS: OXYBUTYNIN 5 MG TAB PO SCH ×2 (09:21→21:50)
[2020-08-13] MEDS: SIMETHICONE 80 MG TAB.CHEW PO SCH ×3 (09:21→17:00)
[2020-08-13] MEDS: amLODIPine 5 MG TAB PO SCH (09:21)
[2020-08-13] MEDS: GABAPENTIN 300 MG CAP PO SCH ×3 (09:21→17:00)
[2020-08-13] MEDS: CLOPIDOGREL 75 MG TAB PO SCH (09:21)
[2020-08-13] MEDS: CALCIUM CARBONATE 500 MG TAB PO SCH ×3 (09:21→17:00)
[2020-08-13] MEDS: FLUoxetine 10 MG CAP PO SCH (09:21)
[2020-08-13] MEDS: DOPamine 400 MG/D5W PREMIX 250 ML IV PRN (13:15)
[2020-08-13] MEDS: NACL 0.9% 1,000 ML IV SCH (20:30)
[2020-08-13] MEDS: LITHIUM CARBONATE 300 MG TAB PO SCH (21:50)
[2020-08-13] MEDS: OLANZapine 5 MG TAB PO SCH (21:50)
[2020-08-14] VITALS (33 sets, daily range): BP systolic 115–162; BP diastolic 35–77
[2020-08-14] MEDS: DOPamine 400 MG/D5W PREMIX 250 ML IV PRN ×3 (02:55→18:34)
[2020-08-14] MEDS: DOCUSATE 100 MG/10 ML UDC GT SCH ×3 (02:55→21:00)
[2020-08-14 05:47] LABS: BASOPHILS % (AUTO) 0.2 % (0.0-2.0); EOSINOPHILS # (AUTO) 0.5 K/uL (0-0.4); EOSINOPHILS % (AUTO) 4.7 % (0.0-4.0); HEMOGLOBIN 10.7 g/dL (12.0-16.0); LYMPHOCYTES # (AUTO) 1.1 K/uL (2.5-16.5); MEAN CORPUSCULAR HEMOGLOBIN 30 pg (27-31); MEAN CORPUSCULAR HGB CONC 33 g/dL (33-37); MEAN CORPUSCULAR VOLUME 89.2 fL (80-94); MONOCYTES # (AUTO) 0.4 K/uL (0.8-1.0); MONOCYTES % (AUTO) 3.9 % (1.7-9.3); NEUTROPHILS % (AUTO) 80.2 % (42.2-75.2); PLATELET COUNT (AUTO) 271 K/uL (140-450); RED BLOOD CELL COUNT(AUTO) 3.59 MIL/uL (4.20-5.40); RED CELL DISTRIBUTION WIDTH 15.6 % (11.6-13.7)
[2020-08-14] MEDS: MEROPENEM 500 MG in NACL 0.9% 50 ML IV SCH ×3 (05:52→21:04)
[2020-08-14 06:01] LABS: CARBON DIOXIDE 21.1 mmol/L (21-32); CHLORIDE 111 mmol/L (98-107); CREATININE 1.1 mg/dL (0.6-1.3); GLUCOSE 152 mg/dL (74-106); POTASSIUM 4.1 mmol/L (3.5-5.1); SODIUM SERUM 139 mmol/L (136-145); UREA NITROGEN, BLOOD 46 mg/dL (7-18)
[2020-08-14 06:05] LABS: MAGNESIUM 2.2 mg/dL (1.8-2.4); PHOSPHORUS 2.7 mg/dL (2.5-4.9)
[2020-08-14] MEDS: amLODIPine 5 MG TAB PO SCH (09:00)
[2020-08-14] MEDS: CALCIUM CARBONATE 500 MG TAB PO SCH ×3 (09:22→17:46)
[2020-08-14] MEDS: GABAPENTIN 300 MG CAP PO SCH ×3 (09:22→17:46)
[2020-08-14] MEDS: CLOPIDOGREL 75 MG TAB PO SCH (09:22)
[2020-08-14] MEDS: LACTOBACILLUS RHAMNOSUS GG 1 EACH CAP PO SCH (09:23)
[2020-08-14] MEDS: OXYBUTYNIN 5 MG TAB PO SCH ×2 (09:23→21:03)
[2020-08-14] MEDS: FAMOTIDINE 20 MG/2 ML VIAL IV SCH (09:23)
[2020-08-14] MEDS: SIMETHICONE 80 MG TAB.CHEW PO SCH ×3 (09:23→17:00)
[2020-08-14] MEDS: FLUoxetine 10 MG CAP PO SCH (09:23)
[2020-08-14] MEDS: NACL 0.9% 1,000 ML IV SCH (10:31)
[2020-08-14] MEDS ORDERED: levETIRAcetam 1,000 MG in NACL 0.9% 100 ML IV SCH (14:00)
[2020-08-14] MEDS: levETIRAcetam 1,000 MG in NACL 0.9% 100 ML IV SCH (21:03)
[2020-08-14] MEDS: LITHIUM CARBONATE 300 MG TAB PO SCH (21:03)
[2020-08-14] MEDS: OLANZapine 5 MG TAB PO SCH (21:04)
[2020-08-15] VITALS (29 sets, daily range): BP systolic 113–146; BP diastolic 33–54
[2020-08-15] MEDS: NACL 0.9% 1,000 ML IV SCH ×2 (01:06→14:41)
[2020-08-15] MEDS: MEROPENEM 500 MG in NACL 0.9% 50 ML IV SCH ×3 (04:49→20:04)
[2020-08-15 07:27] LABS: BASOPHILS % (AUTO) 0.4 % (0.0-2.0); EOSINOPHILS # (AUTO) 0.4 K/uL (0-0.4); EOSINOPHILS % (AUTO) 4.4 % (0.0-4.0); HEMATOCRIT 28.6 % (36-48); HEMOGLOBIN 9.5 g/dL (12.0-16.0); LYMPHOCYTES # (AUTO) 1.4 K/uL (2.5-16.5); LYMPHOCYTES % (AUTO) 15.3 % (20.5-51.1); MEAN CORPUSCULAR HEMOGLOBIN 30 pg (27-31); MEAN CORPUSCULAR HGB CONC 33 g/dL (33-37); MEAN CORPUSCULAR VOLUME 89.5 fL (80-94); MONOCYTES # (AUTO) 0.6 K/uL (0.8-1.0); MONOCYTES % (AUTO) 6.8 % (1.7-9.3); NEUTROPHILS # (AUTO) 6.6 K/uL (1.8-7.7); NEUTROPHILS % (AUTO) 73.1 % (42.2-75.2); PLATELET COUNT (AUTO) 283 K/uL (140-450); RED BLOOD CELL COUNT(AUTO) 3.19 MIL/uL (4.20-5.40); RED CELL DISTRIBUTION WIDTH 15.7 % (11.6-13.7); WHITE BLOOD COUNT (AUTO) 9.1 K/uL (4.8-10.8)
[2020-08-15 07:44] LABS: MAGNESIUM 2.1 mg/dL (1.8-2.4); PHOSPHORUS 3.5 mg/dL (2.5-4.9)
[2020-08-15 08:09] LABS: ALBUMIN 1.7 g/dL (3.4-5.0); ASPARTATE AMINOTRANSFERASE 9 U/L (15-37); CHLORIDE 111 mmol/L (98-107); CREATININE 1.1 mg/dL (0.6-1.3); GLUCOSE 236 mg/dL (74-106); LACTATE DEHYDROGENASE 97 U/L (81-234); MAGNESIUM 2.1 mg/dL (1.8-2.4); PHOSPHORUS 3.4 mg/dL (2.5-4.9); POTASSIUM 4.5 mmol/L (3.5-5.1); SODIUM SERUM 137 mmol/L (136-145); UREA NITROGEN, BLOOD 45 mg/dL (7-18)
[2020-08-15 08:15] LABS: ANION GAP 11.4 (8-16); CARBON DIOXIDE 19.1 mmol/L (21-32)
[2020-08-15] MEDS: DOCUSATE 100 MG/10 ML UDC GT SCH ×2 (09:00→20:03)
[2020-08-15] MEDS: amLODIPine 5 MG TAB PO SCH (09:00)
[2020-08-15] MEDS: SIMETHICONE 80 MG TAB.CHEW PO SCH ×3 (09:00→17:29)
[2020-08-15] MEDS: CALCIUM CARBONATE 500 MG TAB PO SCH ×3 (09:04→17:29)
[2020-08-15] MEDS: OXYBUTYNIN 5 MG TAB PO SCH ×2 (09:04→20:08)
[2020-08-15] MEDS: GABAPENTIN 300 MG CAP PO SCH ×3 (09:04→17:29)
[2020-08-15] MEDS: CLOPIDOGREL 75 MG TAB PO SCH (09:05)
[2020-08-15] MEDS: LACTOBACILLUS RHAMNOSUS GG 1 EACH CAP PO SCH (09:05)
[2020-08-15] MEDS: FLUoxetine 10 MG CAP PO SCH (09:05)
[2020-08-15] MEDS: levETIRAcetam 1,000 MG in NACL 0.9% 100 ML IV SCH ×2 (09:06→20:07)
[2020-08-15] MEDS: DOPamine 400 MG/D5W PREMIX 250 ML IV PRN (15:51)
[2020-08-15] MEDS: LITHIUM CARBONATE 300 MG TAB PO SCH (20:08)
[2020-08-15] MEDS: OLANZapine 5 MG TAB PO SCH (20:08)
[2020-08-16] VITALS (29 sets, daily range): BP systolic 111–162; BP diastolic 42–69
[2020-08-16] MEDS: MEROPENEM 500 MG in NACL 0.9% 50 ML IV SCH ×3 (04:35→21:06)
[2020-08-16] MEDS: NACL 0.9% 1,000 ML IV SCH ×2 (04:36→20:00)
[2020-08-16 06:02] LABS: BASOPHILS % (AUTO) 0.4 % (0.0-2.0); EOSINOPHILS # (AUTO) 0.6 K/uL (0-0.4); EOSINOPHILS % (AUTO) 5.8 % (0.0-4.0); HEMATOCRIT 27.9 % (36-48); HEMOGLOBIN 9.5 g/dL (12.0-16.0); LYMPHOCYTES # (AUTO) 1.3 K/uL (2.5-16.5); MEAN CORPUSCULAR HEMOGLOBIN 31 pg (27-31); MEAN CORPUSCULAR HGB CONC 34 g/dL (33-37); MEAN CORPUSCULAR VOLUME 89.9 fL (80-94); MONOCYTES # (AUTO) 0.7 K/uL (0.8-1.0); MONOCYTES % (AUTO) 7.3 % (1.7-9.3); NEUTROPHILS # (AUTO) 7.4 K/uL (1.8-7.7); NEUTROPHILS % (AUTO) 73.5 % (42.2-75.2); PLATELET COUNT (AUTO) 219 K/uL (140-450); RED BLOOD CELL COUNT(AUTO) 3.11 MIL/uL (4.20-5.40); RED CELL DISTRIBUTION WIDTH 15.6 % (11.6-13.7); WHITE BLOOD COUNT (AUTO) 10.1 K/uL (4.8-10.8)
[2020-08-16 06:50] LABS: CARBON DIOXIDE 19.1 mmol/L (21-32); CHLORIDE 117 mmol/L (98-107); CREATININE 0.9 mg/dL (0.6-1.3); GLUCOSE 99 mg/dL (74-106); POTASSIUM 5.1 mmol/L (3.5-5.1); SODIUM SERUM 144 mmol/L (136-145); UREA NITROGEN, BLOOD 42 mg/dL (7-18)
[2020-08-16 06:57] LABS: MAGNESIUM 1.9 mg/dL (1.8-2.4); PHOSPHORUS 3.1 mg/dL (2.5-4.9)
[2020-08-16] MEDS: DOCUSATE 100 MG/10 ML UDC GT SCH ×2 (09:00→21:00)
[2020-08-16] MEDS: LACTOBACILLUS RHAMNOSUS GG 1 EACH CAP PO SCH (09:40)
[2020-08-16] MEDS: levETIRAcetam 1,000 MG in NACL 0.9% 100 ML IV SCH ×2 (09:40→21:06)
[2020-08-16] MEDS: OXYBUTYNIN 5 MG TAB PO SCH ×2 (09:40→21:06)
[2020-08-16] MEDS: GABAPENTIN 300 MG CAP PO SCH ×3 (09:40→17:46)
[2020-08-16] MEDS: CALCIUM CARBONATE 500 MG TAB PO SCH ×3 (09:40→17:46)
[2020-08-16] MEDS: amLODIPine 5 MG TAB PO SCH (09:40)
[2020-08-16] MEDS: SIMETHICONE 80 MG TAB.CHEW PO SCH ×3 (09:40→17:46)
[2020-08-16] MEDS: CLOPIDOGREL 75 MG TAB PO SCH (09:40)
[2020-08-16] MEDS: FAMOTIDINE 20 MG/2 ML VIAL IV SCH (09:40)
[2020-08-16] MEDS: FLUoxetine 10 MG CAP PO SCH (09:40)
[2020-08-16] MEDS: DOPamine 400 MG/D5W PREMIX 250 ML IV PRN (15:05)
[2020-08-16] MEDS ORDERED: OLANZapine 2.5 MG TAB ONE (20:43)
[2020-08-16] MEDS: LITHIUM CARBONATE 300 MG TAB PO SCH (21:06)
[2020-08-16] MEDS: OLANZapine 5 MG TAB PO SCH (21:07)
[2020-08-17] VITALS (31 sets, daily range): BP systolic 114–153; BP diastolic 35–53
[2020-08-17] MEDS: MEROPENEM 500 MG in NACL 0.9% 50 ML IV SCH ×2 (05:45→13:17)
[2020-08-17 06:08] LABS: BASOPHILS # (AUTO) 0.1 K/uL (0.00-0.22); BASOPHILS % (AUTO) 0.7 % (0.0-2.0); EOSINOPHILS # (AUTO) 0.3 K/uL (0-0.4); EOSINOPHILS % (AUTO) 3.3 % (0.0-4.0); HEMATOCRIT 29.6 % (36-48); HEMOGLOBIN 9.9 g/dL (12.0-16.0); LYMPHOCYTES # (AUTO) 1.8 K/uL (2.5-16.5); LYMPHOCYTES % (AUTO) 18.6 % (20.5-51.1); MEAN CORPUSCULAR HEMOGLOBIN 30 pg (27-31); MEAN CORPUSCULAR HGB CONC 33 g/dL (33-37); MEAN CORPUSCULAR VOLUME 89.1 fL (80-94); MONOCYTES # (AUTO) 0.4 K/uL (0.8-1.0); NEUTROPHILS # (AUTO) 7.2 K/uL (1.8-7.7); NEUTROPHILS % (AUTO) 73.4 % (42.2-75.2); PLATELET COUNT (AUTO) 391 K/uL (140-450); RED BLOOD CELL COUNT(AUTO) 3.33 MIL/uL (4.20-5.40); RED CELL DISTRIBUTION WIDTH 15.5 % (11.6-13.7); WHITE BLOOD COUNT (AUTO) 9.9 K/uL (4.8-10.8)
[2020-08-17 06:36] LABS: ANION GAP 10.8 (8-16); CARBON DIOXIDE 23.3 mmol/L (21-32); CHLORIDE 115 mmol/L (98-107); GLUCOSE 130 mg/dL (74-106); POTASSIUM 5.1 mmol/L (3.5-5.1); SODIUM SERUM 144 mmol/L (136-145); UREA NITROGEN, BLOOD 39 mg/dL (7-18)
[2020-08-17 06:45] LABS: MAGNESIUM 1.8 mg/dL (1.8-2.4)
[2020-08-17 06:46] LABS: PHOSPHORUS 2.8 mg/dL (2.5-4.9)
[2020-08-17] MEDS: DOCUSATE 100 MG/10 ML UDC GT SCH ×2 (09:00→20:15)
[2020-08-17] MEDS: levETIRAcetam 1,000 MG in NACL 0.9% 100 ML IV SCH ×2 (09:48→20:15)
[2020-08-17] MEDS: FLUoxetine 10 MG CAP PO SCH (09:49)
[2020-08-17] MEDS: CALCIUM CARBONATE 500 MG TAB PO SCH ×3 (09:49→17:56)
[2020-08-17] MEDS: NACL 0.9% 1,000 ML IV SCH (09:49)
[2020-08-17] MEDS: GABAPENTIN 300 MG CAP PO SCH ×3 (09:49→17:56)
[2020-08-17] MEDS: LACTOBACILLUS RHAMNOSUS GG 1 EACH CAP PO SCH (09:49)
[2020-08-17] MEDS: OXYBUTYNIN 5 MG TAB PO SCH ×2 (09:49→20:15)
[2020-08-17] MEDS: amLODIPine 5 MG TAB PO SCH (09:49)
[2020-08-17] MEDS: CLOPIDOGREL 75 MG TAB PO SCH (09:49)
[2020-08-17] MEDS: SIMETHICONE 80 MG TAB.CHEW PO SCH ×3 (09:49→17:56)
[2020-08-17] MEDS: DOPamine 400 MG/D5W PREMIX 250 ML IV PRN (16:00)
[2020-08-17] MEDS: LITHIUM CARBONATE 300 MG TAB PO SCH (20:15)
[2020-08-17] MEDS: OLANZapine 5 MG TAB PO SCH (20:19)
[2020-08-18] VITALS (30 sets, daily range): BP systolic 127–168; BP diastolic 44–74
[2020-08-18] MEDS: NACL 0.9% 1,000 ML IV SCH ×3 (00:51→18:54)
[2020-08-18 05:47] LABS: ANION GAP 11.2 (8-16); CARBON DIOXIDE 23.9 mmol/L (21-32); CHLORIDE 114 mmol/L (98-107); CREATININE 0.9 mg/dL (0.6-1.3); GLUCOSE 108 mg/dL (74-106); POTASSIUM 5.1 mmol/L (3.5-5.1); SODIUM SERUM 144 mmol/L (136-145); UREA NITROGEN, BLOOD 35 mg/dL (7-18)
[2020-08-18 06:37] LABS: BASOPHILS # (AUTO) 0.1 K/uL (0.00-0.22); BASOPHILS % (AUTO) 0.7 % (0.0-2.0); EOSINOPHILS # (AUTO) 0.3 K/uL (0-0.4); EOSINOPHILS % (AUTO) 4.3 % (0.0-4.0); HEMATOCRIT 27.5 % (36-48); HEMOGLOBIN 9.2 g/dL (12.0-16.0); LYMPHOCYTES # (AUTO) 1.7 K/uL (2.5-16.5); LYMPHOCYTES % (AUTO) 20.4 % (20.5-51.1); MEAN CORPUSCULAR HEMOGLOBIN 30 pg (27-31); MEAN CORPUSCULAR HGB CONC 33 g/dL (33-37); MEAN CORPUSCULAR VOLUME 89.4 fL (80-94); MONOCYTES # (AUTO) 0.5 K/uL (0.8-1.0); MONOCYTES % (AUTO) 5.6 % (1.7-9.3); NEUTROPHILS # (AUTO) 5.6 K/uL (1.8-7.7); PLATELET COUNT (AUTO) 405 K/uL (140-450); RED BLOOD CELL COUNT(AUTO) 3.08 MIL/uL (4.20-5.40); RED CELL DISTRIBUTION WIDTH 15.5 % (11.6-13.7); WHITE BLOOD COUNT (AUTO) 8.1 K/uL (4.8-10.8)
[2020-08-18] MEDS: amLODIPine 5 MG TAB PO SCH (09:00)
[2020-08-18] MEDS: DOCUSATE 100 MG/10 ML UDC GT SCH ×2 (09:41→20:12)
[2020-08-18] MEDS: LACTOBACILLUS RHAMNOSUS GG 1 EACH CAP PO SCH (09:42)
[2020-08-18] MEDS: CLOPIDOGREL 75 MG TAB PO SCH (09:42)
[2020-08-18] MEDS: CALCIUM CARBONATE 500 MG TAB PO SCH ×3 (09:42→16:20)
[2020-08-18] MEDS: GABAPENTIN 300 MG CAP PO SCH ×3 (09:42→16:21)
[2020-08-18] MEDS: OXYBUTYNIN 5 MG TAB PO SCH ×2 (09:42→20:12)
[2020-08-18] MEDS: FLUoxetine 10 MG CAP PO SCH (09:43)
[2020-08-18] MEDS: levETIRAcetam 1,000 MG in NACL 0.9% 100 ML IV SCH ×2 (09:43→20:06)
[2020-08-18] MEDS: SIMETHICONE 80 MG TAB.CHEW PO SCH ×3 (09:43→16:21)
[2020-08-18] MEDS: FAMOTIDINE 20 MG/2 ML VIAL IV SCH (09:43)
[2020-08-18] MEDS: DOPamine 400 MG/D5W PREMIX 250 ML IV PRN (10:55)
[2020-08-18] MEDS: LITHIUM CARBONATE 300 MG TAB PO SCH (20:12)
[2020-08-18] MEDS: OLANZapine 5 MG TAB PO SCH (20:14)
[2020-08-19] VITALS (12 sets, daily range): BP systolic 126–187; BP diastolic 48–77
[2020-08-19] MEDS ORDERED: MEROPENEM 1,000 MG VIAL IV ONE (01:29)
[2020-08-19] MEDS: MEROPENEM 1,000 MG in NACL 0.9% 100 ML IV SCH ×3 (01:35→22:34)
[2020-08-19] MEDS: hydrALAZINE 20 MG/ML VIAL IVP PRN ×3 (02:43→18:31)
[2020-08-19] MEDS ORDERED: MEROPENEM 500 MG in NACL 0.9% 50 ML IV SCH (05:00)
[2020-08-19 06:09] LABS: ANION GAP 11.2 (8-16); CARBON DIOXIDE 24.7 mmol/L (21-32); CHLORIDE 115 mmol/L (98-107); CREATININE 0.8 mg/dL (0.6-1.3); GLUCOSE 142 mg/dL (74-106); POTASSIUM 4.9 mmol/L (3.5-5.1); SODIUM SERUM 146 mmol/L (136-145); UREA NITROGEN, BLOOD 32 mg/dL (7-18)
[2020-08-19 06:17] LABS: BASOPHILS % (AUTO) 0.5 % (0.0-2.0); EOSINOPHILS # (AUTO) 0.2 K/uL (0-0.4); EOSINOPHILS % (AUTO) 3.6 % (0.0-4.0); HEMATOCRIT 30.6 % (36-48); HEMOGLOBIN 10.4 g/dL (12.0-16.0); LYMPHOCYTES # (AUTO) 0.8 K/uL (2.5-16.5); LYMPHOCYTES % (AUTO) 10.9 % (20.5-51.1); MEAN CORPUSCULAR HEMOGLOBIN 30 pg (27-31); MEAN CORPUSCULAR HGB CONC 34 g/dL (33-37); MEAN CORPUSCULAR VOLUME 89.6 fL (80-94); MONOCYTES # (AUTO) 0.3 K/uL (0.8-1.0); MONOCYTES % (AUTO) 4.5 % (1.7-9.3); NEUTROPHILS # (AUTO) 5.6 K/uL (1.8-7.7); NEUTROPHILS % (AUTO) 80.5 % (42.2-75.2); PLATELET COUNT (AUTO) 363 K/uL (140-450); RED BLOOD CELL COUNT(AUTO) 3.41 MIL/uL (4.20-5.40); RED CELL DISTRIBUTION WIDTH 15.8 % (11.6-13.7); WHITE BLOOD COUNT (AUTO) 6.9 K/uL (4.8-10.8)
[2020-08-19] MEDS: levETIRAcetam 1,000 MG in NACL 0.9% 100 ML IV SCH ×2 (09:00→21:54)
[2020-08-19] MEDS: CALCIUM CARBONATE 500 MG TAB PO SCH ×3 (09:00→17:00)
[2020-08-19] MEDS: GABAPENTIN 300 MG CAP PO SCH ×3 (09:00→17:00)
[2020-08-19] MEDS: FLUoxetine 10 MG CAP PO SCH (09:00)
[2020-08-19] MEDS: CLOPIDOGREL 75 MG TAB PO SCH (09:00)
[2020-08-19] MEDS: DOCUSATE 100 MG/10 ML UDC GT SCH ×2 (09:00→21:00)
[2020-08-19] MEDS: OXYBUTYNIN 5 MG TAB PO SCH ×2 (09:00→21:54)
[2020-08-19] MEDS: LACTOBACILLUS RHAMNOSUS GG 1 EACH CAP PO SCH (09:00)
[2020-08-19] MEDS: amLODIPine 5 MG TAB PO SCH (09:00)
[2020-08-19] MEDS: SIMETHICONE 80 MG TAB.CHEW PO SCH ×3 (09:00→17:00)
[2020-08-19] MEDS: LITHIUM CARBONATE 300 MG TAB PO SCH (21:55)
[2020-08-19] MEDS: OLANZapine 5 MG TAB PO SCH (21:55)
[2020-08-20] VITALS: BP 141/60
[2020-08-20 04:00] VITALS: BP 128/59
[2020-08-20] MEDS: NACL 0.9% 1,000 ML IV SCH (05:01)
[2020-08-20 06:23] LABS: BASOPHILS # (AUTO) 0.1 K/uL (0.00-0.22); BASOPHILS % (AUTO) 0.9 % (0.0-2.0); EOSINOPHILS # (AUTO) 0.1 K/uL (0-0.4); EOSINOPHILS % (AUTO) 1.5 % (0.0-4.0); HEMATOCRIT 28.1 % (36-48); HEMOGLOBIN 9.6 g/dL (12.0-16.0); LYMPHOCYTES # (AUTO) 1.3 K/uL (2.5-16.5); LYMPHOCYTES % (AUTO) 14.8 % (20.5-51.1); MEAN CORPUSCULAR HEMOGLOBIN 31 pg (27-31); MEAN CORPUSCULAR HGB CONC 34 g/dL (33-37); MEAN CORPUSCULAR VOLUME 89.5 fL (80-94); MONOCYTES # (AUTO) 0.3 K/uL (0.8-1.0); MONOCYTES % (AUTO) 3.9 % (1.7-9.3); NEUTROPHILS % (AUTO) 78.9 % (42.2-75.2); PLATELET COUNT (AUTO) 384 K/uL (140-450); RED BLOOD CELL COUNT(AUTO) 3.14 MIL/uL (4.20-5.40); WHITE BLOOD COUNT (AUTO) 8.9 K/uL (4.8-10.8)
[2020-08-20 06:24] LABS: ANION GAP 11.7 (8-16); CARBON DIOXIDE 25.4 mmol/L (21-32); CHLORIDE 114 mmol/L (98-107); CREATININE 0.9 mg/dL (0.6-1.3); GLUCOSE 131 mg/dL (74-106); POTASSIUM 5.1 mmol/L (3.5-5.1); SODIUM SERUM 146 mmol/L (136-145); UREA NITROGEN, BLOOD 35 mg/dL (7-18)
[2020-08-20 08:00] VITALS: BP 152/61
[2020-08-20] MEDS: levETIRAcetam 1,000 MG in NACL 0.9% 100 ML IV SCH (09:10)
[2020-08-20] MEDS: FAMOTIDINE 20 MG/2 ML VIAL IV SCH (09:10)
[2020-08-20] MEDS: DOCUSATE 100 MG/10 ML UDC GT SCH (09:10)
[2020-08-20] MEDS: CLOPIDOGREL 75 MG TAB PO SCH (09:11)
[2020-08-20] MEDS: GABAPENTIN 300 MG CAP PO SCH ×3 (09:11→17:27)
[2020-08-20] MEDS: OXYBUTYNIN 5 MG TAB PO SCH (09:12)
[2020-08-20] MEDS: SIMETHICONE 80 MG TAB.CHEW PO SCH ×3 (09:12→17:26)
[2020-08-20] MEDS: CALCIUM CARBONATE 500 MG TAB PO SCH ×3 (09:12→17:27)
[2020-08-20] MEDS: amLODIPine 5 MG TAB PO SCH (09:13)
[2020-08-20] MEDS: LACTOBACILLUS RHAMNOSUS GG 1 EACH CAP PO SCH (09:14)
[2020-08-20] MEDS: FLUoxetine 10 MG CAP PO SCH (09:22)
[2020-08-20] MEDS ORDERED: KEP500L PO (10:35)
[2020-08-20 12:00] VITALS: BP 138/51
[2020-08-20 16:00] VITALS: BP 141/53
[2020-08-20 17:15] VITALS: BP 141/53
== END 2020-08-20 19:20 | DRG 870 ==
LOC: MED 00:11 → MFCC 01:52 → MTU 02:07 → MMU 08-11 01:06
PROVIDERS: ADMIT Family Medicine; ATTEND Family Medicine
PROC: 5A1955Z Respiratory Ventilation, Greater than 96 Consecutive Hours (ICD-10-PCS; principal; 2020-08-09)
PROC: 0BH17EZ Insertion of Endotracheal Airway into Trachea, Via Natural or Artificial Opening (ICD-10-PCS; 2020-08-09)
PROC: 5A12012 Performance of Cardiac Output, Single, Manual (ICD-10-PCS; 2020-08-09)
PROC: 02HV33Z Insertion of Infusion Device into Superior Vena Cava, Percutaneous Approach (ICD-10-PCS; 2020-08-09)
PROC: B548ZZA Ultrasonography of Superior Vena Cava, Guidance (ICD-10-PCS; 2020-08-09)
PROC: 4A00X4Z Measurement of Central Nervous Electrical Activity, External Approach (ICD-10-PCS; 2020-08-14)
DX: A41.9 Sepsis, unspecified organism (principal); G93.41 Metabolic encephalopathy; N17.0 Acute kidney failure with tubular necrosis; J96.01 Acute respiratory failure with hypoxia; R65.21 Severe sepsis with septic shock; I46.9 Cardiac arrest, cause unspecified; N39.0 Urinary tract infection, site not specified; Z16.12 Extended spectrum beta lactamase (ESBL) resistance; E83.41 Hypermagnesemia; B96.20 Unspecified Escherichia coli [E. coli] as the cause of diseases classified elsewhere; E78.5 Hyperlipidemia, unspecified; F03.90 Unspecified dementia, unspecified severity, without behavioral disturbance, psychotic disturbance, mood disturbance, and anxiety; E86.0 Dehydration; F31.9 Bipolar disorder, unspecified; I25.10 Atherosclerotic heart disease of native coronary artery without angina pectoris; J45.909 Unspecified asthma, uncomplicated; K21.9 Gastro-esophageal reflux disease without esophagitis; Z20.822 Contact with and (suspected) exposure to COVID-19; E87.5 Hyperkalemia; E83.52 Hypercalcemia; N18.31 Chronic kidney disease, stage 3a; D32.9 Benign neoplasm of meninges, unspecified; I13.10 Hypertensive heart and chronic kidney disease without heart failure, with stage 1 through stage 4 chronic kidney disease, or unspecified chronic kidney disease; T44.7X5A Adverse effect of beta-adrenoreceptor antagonists, initial encounter; Y92.89 Other specified places as the place of occurrence of the external cause; Z86.74 Personal history of sudden cardiac arrest; Z90.49 Acquired absence of other specified parts of digestive tract; Z90.710 Acquired absence of both cervix and uterus
CPT/HCPCS: 31500; 36415; 36600; 70450; 71045; 80048; 80053; 80202; 80305; 81001; 82140; 82150; 82550; 82570; 82803; 82948; 83036; 83605; 83615; 83690; 83735; 84100; 84300; 84436; 84439; 84443; 84479; 84484; 85025; 85379; 85610; 85651; 85730; 86140; 87040; 87070; 87081; 87086; 92610; 93005; 94002; 94003; 96365; 99285; G0480; G0482; J0360; J0696; J1265; J1953; J2185; J2250; J2543; J3010; J3370; J3490; J7030; J7060

== ENCOUNTER 2020-09-20 13:55 | Emergency (ER) | payer OTHER, SELFPAY ==
[~2020-09-20] VITALS: Ht 170.2 cm; Wt 59.0 kg
[~2020-09-20 13:55] MED LIST changes: -BENZ-196 PO; +DOCU-2 PO; -IBUP200C97 PO; +KEP500L PO; +METR500T1 IV; -NITR0.4T2 SL; +OSC500 PO; +SIME80TA22 PO; -ZOS2.25I IV
[2020-09-20 14:01] VITALS: BP 152/75
--- NOTE | 2020-09-20 14:14 | NUR ---
89 Y/O FEMALE BIBA FROM [facility] FOR UNWITNESSED FALL TODAY. PT WAS FOUND ON FLOOR WITH HEMATOMA TO LEFT FOREHEAD; SKIN INTACT, NO OPEN WOUNDS NOTED, NO DRAINAGE NOTED. PT UNRESPONSIVE/NON-VERBAL BASELINE, BREAKING EVEN AND UNLABORED, SKIN WARM AND DRY. BED IN LOWEST PSOITION, LOCKED, SIDERAILS UP. PMH: EPILEPSY, CARDIAC ARREST 08/09/20, CVA, HTN NKA
--- NOTE | 2020-09-20 15:05 | NUR ---
PT TAKEN TO CT VIA [facility]
--- NOTE | 2020-09-20 16:00 | NUR ---
Per warehouse distribution associate Birgit, given authorization to attempt to transport patient through [facility]. Attempted to contact [facility] and face sheet faxed, to arrange transport back to [facility], no answer, will continue to try.
--- NOTE | 2020-09-20 16:52 | NUR ---
PT IN BED, EYES CLOSED, CHEST RISE AND FALL NOTED. WILL CONTINUE TO ASSESS.
--- NOTE | 2020-09-20 17:28 | NUR ---
PT IN BED, EYES CLOSED, CHEST RISE AND FALL NOTED. WILL CONTINUE TO ASSESS.
--- NOTE | 2020-09-20 19:10 | NUR ---
ENDORSEMENT GIVEN TO ENOCH GU FOR CONTINUATION OF CARE
--- NOTE | 2020-09-20 19:20 | NUR ---
RECEIVED PT IN BED 8, NON-VERBAL, WITH SON AT BEDSIDE. IS SLIGHTLY RESTLESS, ASSISTED WITH REPOSITIONING. PT TO BE DISCHARGED
--- NOTE | 2020-09-20 19:30 | NUR ---
WATER OFFERED. PT PUSHES CUP AWAY
--- NOTE | 2020-09-20 20:04 | NUR ---
Pt resting left laterally in bed w/ HOB elevated, side rail x 2 for pt safety. Bed is locked and in lowest position. Visible rise and fall of chest. oxygen level 99% on room air. Lights dimmed and blanket placed on patient for comfort. No acute distress noted at this time.
--- NOTE | 2020-09-20 22:22 | NUR ---
Pt resting w/ eyes closed left laterally, w/ HOB elevated and bed locked and in lowest position, side rail x 2 for pt safety. Visible rise and fall of chest. RR even and unlabored , oxygen level 98% on Room Air. No acute distress noted.
--- NOTE | 2020-09-21 00:10 | NUR ---
Pt laying supine with eyes closed, HOB elevated, side rail x 2 for pt safety. VSS. RR even and unlabored. Oxygen level 96% on room air.
--- NOTE | 2020-09-21 02:19 | NUR ---
Pt resting w/ eyes closed laying left laterally. Bed is locked and in lowest position, w/ HOB elevated. Visible rise and fall of chest noted. VSS. No acute distress noted at this time.
--- NOTE | 2020-09-21 04:40 | NUR ---
Repositioned patient and blanket on patient. Visible rise and fall. VSS. No acute distress noted.
--- NOTE | 2020-09-21 07:07 | NUR ---
Report given to BRITTANIE Diaz for transfer of care.
--- NOTE | 2020-09-21 07:07 | NUR ---
Report and continuation of care received from BRITTANIE Mendoza.
--- NOTE | 2020-09-21 07:48 | NUR ---
Patient presents asleep lying in left lateral position. HOB elevated for patient comfort. Respirations even/unlabored. All pt needs met at this time. Patient remains on cardiac monitor technician. Bed locked in lowest position, side rails x 1, call light in reach.
--- NOTE | 2020-09-21 08:18 | NUR ---
Spoke with [facility] regarding transportation arrangement with [employer]. Pending at 10am.
--- NOTE | 2020-09-21 08:59 | NUR ---
Patient presents awake with both eyes open, lying in left lateral position. HOB elevated for patient comfort. Respirations even/unlabored. All pt needs met at this time. Patient remains on monitor car operator. Bed locked in lowest position, side rails x 1, call light in reach.
--- NOTE | 2020-09-21 10:05 | NUR ---
Transportation crew at bedside to transport patient back to [facility]. Puts signature obtained from secondary RN for discharge signature page d/t patient A&Ox0/non-verbal baseline.
[2020-09-21 10:11] VITALS: BP 147/60
--- NOTE | 2020-09-21 10:11 | NUR ---
Patient discharged with v/s stable. Written and verbal after care instructions given and explained. Patient verbalized understanding. [facility] Transport with to [facility]. All questions addressed prior to discharge. Advised to follow up with PMD.
== END 2020-09-21 10:11 | disposition home or self-care (01) ==
LOC: MED 13:55
DX: S00.83XA Contusion of other part of head, initial encounter (principal); I10 Essential (primary) hypertension; F32.9 Major depressive disorder, single episode, unspecified; I25.2 Old myocardial infarction; J45.909 Unspecified asthma, uncomplicated; K21.9 Gastro-esophageal reflux disease without esophagitis; Z79.899 Other long term (current) drug therapy; W19.XXXA Unspecified fall, initial encounter; Y93.89 Activity, other specified; Y92.89 Other specified places as the place of occurrence of the external cause; Y99.8 Other external cause status
CPT/HCPCS: 70450; 71045; 72125; 72170; 81025; 99285